=== PATIENT | female | born 1995 | race African-American/Black ===

== ENCOUNTER 2017-01-02 19:34 | Emergency (ER) | payer OTHER, MEDICAID ==
[2017-01-02] MEDS ORDERED: ACETAMINOPHEN 325 MG TABLET PO ONE (21:02)
[2017-01-02 21:14] LABS: ABSOLUTE BASOPHILS # (AUTO) 0.1 10^3/uL (0.0-0.2); ABSOLUTE MONOCYTES (AUTO) 0.7 10^3/uL (0.1-1.4); ABSOLUTE NEUT (AUTO) 7.3 10^3/uL (1.7-8.2); BASOPHILS % (AUTO) 0.5 % (0-2); EOSINOPHILS % (AUTO) 0.2 % (0-6); HEMATOCRIT 40.4 % (36.0-47.0); HEMOGLOBIN 13.7 g/dL (12.0-15.5); HGB HCT DIFFERENCE 0.7; LYMPHOCYTES % (AUTO) 20.1 % (13-45); MEAN CORPUSCULAR HEMOGLOBIN 32.1 pg (27.0-33.4); MEAN CORPUSCULAR HGB CONC 33.8 g/dL (32.0-36.0); MEAN CORPUSCULAR VOLUME 95 fl (80-97); MONOCYTES % (AUTO) 6.9 % (3-13); RED BLOOD COUNT 4.26 10^6/uL (3.72-5.28); RED CELL DISTRIBUTION WIDTH 14.1 % (11.5-14.0); SEGMENTED NEUTROPHILS % (AUTO) 72.3 % (42-78)
[2017-01-02 21:32] LABS: ANION GAP 9 (5-19); BLOOD UREA NITROGEN 11 mg/dL (7-20); CALCIUM 9.8 mg/dL (8.4-10.2); CARBON DIOXIDE 27 mmol/L (22-30); CHLORIDE 104 mmol/L (98-107); CREATININE RESULT 0.87 mg/dL (0.52-1.25); GLUCOSE 69 mg/dL (75-110); POTASSIUM 3.9 mmol/L (3.6-5.0); SODIUM 139.8 mmol/L (137-145)
[2017-01-02 21:33] LABS: APPEARANCE,URINE CLEAR; BILIRUBIN,URINE NEGATIVE (NEGATIVE); GLUCOSE, URINE NEGATIVE (NEGATIVE); KETONES,URINE NEGATIVE (NEGATIVE); LEUKOCYTE ESTERASE,URINE NEGATIVE (NEGATIVE); NITRITE,URINE NEGATIVE (NEGATIVE); PROTEIN,URINE NEGATIVE (NEGATIVE); URINE SPECIFIC GRAVITY 1.027; UROBILINOGEN,URINE NEGATIVE mg/dL (<2.0)
--- NOTE | 2017-01-02 21:55 | ER Document Report ---
ED GI/ - General Chief Complaint: Vag Bleeding, +preg <12wks Stated Complaint: VAGINAL BLEEDING/CRAMPING/ Time Seen by Provider: 01/02/17 20:55 Notes: Patient is a 8-week 21-year-old female emergency room complaining of abdominal cramping for the past 4 days with vaginal bleeding which is increased since amount over the past 2 days. She denies any pyuria, hematuria, vaginal pain, vaginal discharge. Denies any vomiting. Has occasional nausea. Denies any diarrhea or constipation. Otherwise healthy TRAVEL OUTSIDE OF THE [place] IN LAST 30 DAYS: No - Related Data Allergies/Adverse Reactions: No Known Allergies Allergy (Verified 12/10/15 15:05) Past Medical History - Social History Smoking Status: Never Smoker Family History: Reviewed & Not Pertinent Renal/ Medical History: Denies: Hx Peritoneal Dialysis GI Medical History: Reports: Hx Irritable Bowel Review of Systems - Review of Systems Constitutional: No symptoms reported Gastrointestinal: See HPI Genitourinary: See HPI Female Genitourinary: See HPI -: Yes All other systems reviewed and negative Physical Exam - Vital signs Vitals: Temp Pulse Resp BP Pulse Ox 98.2 F 94 18 119/65 100 01/02/17 19:53 01/02/17 19:53 01/02/17 19:53 01/02/17 19:53 01/02/17 19:53 - Notes Notes: PHYSICAL EXAM GENERAL: Alert, interacts well. LUNGS: Clear to auscultation bilaterally, no wheezes, rales, or rhonchi. No respiratory distress. HEART: Regular rate and rhythm. No murmurs, gallops, or rubs. ABDOMEN: Soft, nondistended, nontender. No guarding, rebound, or rigidity.. Bowel sounds present in all 4 quadrants. Female exam deferred EXTREMITIES: Moves all 4 extremities spontaneously. No edema, radial and dorsalis pedis pulses 2/4 bilaterally. No cyanosis. NEUROLOGICAL: Alert and oriented x4. Normal speech. PSYCH: Normal affect, normal mood. SKIN: Warm, dry, normal turgor. No rashes or lesions noted. Course - Re-evaluation Re-evalutation: 01/02/17 21:55 Patient is a 21-year-old female hemodynamic stable, no acute distress afebrile. HCG consistent with for about 5 weeks. Transvaginal ultrasound shows evidence of gestational sac without heart rate given that fetus is young. Findings are consistent with possible early IUP. Recommending follow-up with blood work and imaging in the next couple of days. Discussed with family who are agreeable. Patient stable for discharge home - Vital Signs Vital signs: Temp Pulse Resp BP Pulse Ox 98.0 F 67 18 120/70 100 01/02/17 22:51 01/02/17 22:51 01/02/17 22:51 01/02/17 22:51 01/02/17 22:51 - Laboratory Result Diagrams: 01/02/17 20:57 01/02/17 20:57 Laboratory results interpreted by me: 01/02/17 01/02/17 01/02/17 20:57 20:57 20:57 RDW 14.1 H Glucose 69 L Beta HCG, Quant 21124.00 H Urine Blood MODERATE H - Diagnostic Test Radiology reviewed: Reports reviewed Discharge - Discharge Clinical Impression: Vaginal bleeding before 22 weeks gestation Condition: Good Disposition: HOME, SELF-CARE Additional Instructions: : You are . care is best started as early in as possible. If you're unsure about continuing this , you should discuss this with your physician or with pediatric speech language pathologist at [facility]. You should take only medications approved by your physician. Acetaminophen can safely be taken for minor pains. As a rule, medication for chronic conditions such as asthma or seizures can safely be continued. You should discuss with the physician every medicine you take. Any regular exercise program can be continued. Talk to your physician, however, before engaging in competitive or demanding sports. Alcohol, smoking, and "street drugs" are dangerous to your baby. Cocaine is especially dangerous. Don't use any illicit drugs! BLEEDING DURING EARLY : You have been evaluated for passing blood while . While we take this symptom very seriously, most women with your degree of bleeding will go on to have a perfectly normal baby. At this time, there is no indication that a miscarriage will occur. (A miscarriage occurs when the fetus is abnormal. There is no medicine or treatment to prevent it.) A more serious cause of bleeding is tubal (or ectopic) . An ultrasound usually can show whether the is in the uterus or in the tube. Sometimes in early , no fetus is seen. In this case, careful follow-up, including repeat blood tests and repeat ultrasound, is necessary. Do not douche or have sex for at least a week, or until OK'd by the doctor. Don't use tampons. Call the doctor or return for re-examination if there is an increase in bleeding or cramping, extreme weakness, fainting, new abdominal pain, fever, or passage of tissue. RHOGAM: Rhogam is given to a woman who has Rh negative blood type when she has vaginal bleeding during her or at the time of the delivery of her baby. If a woman is Rh negative, her body will form antibodies against red blood cells from an Rh positive fetus or baby that mix with her blood during a threatened or actual miscarraige or delivery. These antibodies will remain in the woman's body forever and will attack any future Rh positive fetus preventing it from developing into a normal baby. Rhogam is given to prevent the mother's body from forming these antibodies. REPEAT BLOOD TEST: At this time, it is uncertain if you have a viable . During the first three months of , the hormone produced from the placenta will steadily rise, usually doubling in value every 2 - 3 days. In order to determine if your is viable and likely be succesful, a repeat of this blood test for the hormone is recommended in 2 - 3 days. An order for this test to be done as an outpatient is being provided. After you have this repeat test done, call your doctor or call us for the results. If the value of the test is increasing as would be expected in a normal , then your is likely to be ok. However, if the value of the test is declining, it will suggest something has happened with your and it will not likely be a successful . FOLLOW-UP CARE: If you have been referred to a physician for follow-up care, call the physician s office for an appointment as you were instructed or within the next two days. If you experience worsening or a significant change in your symptoms (very heavy bleeding with large clots of blood, passage of tissue, more severe abdominal / pelvic pain or cramping, feeling faint or severe weakness, fever, etc.), notify the physician immediately or return to the Emergency Department at any time for re-evaluation. OBSTETRIC-GYNECOLOGIC (OB-HEALTH SERVICES MANAGER) PHYSICIANS IN [place]: [facility] [address] [place] [address] [phone] For active duty and dependents diagnosed with a threatened or miscarriage, you should follow up in the following manner: Standard patients who have a local civilian provider should follow up with that provider. Patients of the Family Practice Clinic should call your Team Nurse at 8: 00 am the following morning for further instructions. If you are neither a Standard patient nor a patient of the Family Practice Clinic, you should follow up at the [facility] ([facility]) . Patients already enrolled in the [facility] OB Clinic, Prime patients not assigned to the Family Practice Clinic, and Active Duty patients not assigned to [facility] should report to the [facility] Lab at 8:00 am the next morning that the [facility] OB Clinic is open and then you will be seen in the OB Clinic at 11:00 am. Forms: Follow-Up Radiology Testing, Follow-Up Outpatient Testing Referrals: [facility] [Provider Group] - 01/05/17
--- NOTE | 2017-01-02 22:07 | RADIOLOGY REPORT (SQ) ---
EXAM DESCRIPTION: U/S OB TRANSVAG W/DOPPLER COMPLETED DATE/TIME: 01/02/2017 9:57 pm REASON FOR STUDY: vaginal bleeding COMPARISON: None. TECHNIQUE: Transvaginal static and realtime grayscale images acquired of the pelvis. Additional isaac cted spectral and color Doppler images recorded. All images stored on PACs. [id number] LIMITATIONS: None. FINDINGS: UTERUS: No masses. No anomalies. GESTATIONAL SAC: Yes. YOLK SAC: Yes. POLE: No. RIGHT ADNEXA: Normal ovary with normal vascular flow. No adnexal free fluid. No adnexal masses. LEFT ADNEXA: Normal ovary with normal vascular flow. No adnexal free fluid. No adnexal masses. FREE FLUID: None. OTHER: No other significant finding. IMPRESSION: POSSIBLE EARLY INTRAUTERINE . BHCG LEVEL APPROPRIATE FOR ENDOMETRIAL FINDINGS. CONSIDER F/U BHCG AND/OR ULTRASOUND FOR VERIFICATION AND TO EXCLUDE ECTOPIC . Trimester of : First - 0 to 13 weeks. TECHNICAL DOCUMENTATION: JOB ID: [id number]- All Rights Reserved
[2017-01-02 22:55] VITALS: BP 120/70
== END 2017-01-02 22:55 | disposition home or self-care (01) ==
LOC: ER 19:34
DX: O46.91 Antepartum hemorrhage, unspecified, first trimester (principal); Z3A.01 Less than 8 weeks gestation of pregnancy
CPT/HCPCS: 36415; 76817; 80048; 81001; 84702; 85025; 86900; 86901; 93976; 99284

== ENCOUNTER 2017-07-14 12:50 | Emergency (ER) | payer OTHER, MEDICAID ==
[2017-07-14 13:00] VITALS: BP 133/81
[2017-07-14] MEDS ORDERED: HYDROCODONE/ACETAMINOPHEN 5-325 MG TABLET PO ONE (13:16)
[2017-07-14] MEDS ORDERED: ONDANSETRON 4 MG TAB.RAPDIS PO ONE ×2 (13:16→16:35)
--- NOTE | 2017-07-14 13:16 | ER Document Report ---
ED Medical Screen (RME) - General Chief Complaint: Abdominal Pain Stated Complaint: ABDOMINAL PAIN,NAUSEA Time Seen by Provider: 07/14/17 13:11 Notes: 21-year-old female patient complaining of two-week history of left lower quadrant abdominal pain and now left upper quadrant abdominal pain. He states it feels like she is swollen in her left upper quadrant and thinks it is her spleen. She has no history of problems with her spleen. She had similar discomfort 3 years ago which she thought it might have been her irritable bowel syndrome. It resolved with no treatment at that time. LMP started 1 week ago and is just now ending. I have greeted and performed a rapid initial assessment of this patient. A comprehensive ED assessment and evaluation of the patient, analysis of test results and completion of the medical decision making process will be conducted by additional ED providers. TRAVEL OUTSIDE OF THE [place] IN LAST 30 DAYS: No - Related Data Allergies/Adverse Reactions: No Known Allergies Allergy (Verified 07/14/17 13:11) Past Medical History - Social History Chew tobacco use (# tins/day): No Frequency of alcohol use: None Drug Abuse: None Renal/ Medical History: Denies: Hx Peritoneal Dialysis GI Medical History: Reports: Hx Irritable Bowel Physical Exam - Vital signs Vitals: Temp Pulse Resp BP Pulse Ox 98.3 F 92 12 133/81 H 99 07/14/17 12:58 07/14/17 12:58 07/14/17 12:58 07/14/17 12:58 07/14/17 12:58 Course - Vital Signs Vital signs: Temp Pulse Resp BP Pulse Ox 98.3 F 92 12 133/81 H 99 07/14/17 12:58 07/14/17 12:58 07/14/17 12:58 07/14/17 12:58 07/14/17 12:58
[2017-07-14 13:32] LABS: ABSOLUTE BASOPHILS # (AUTO) 0.1 10^3/uL (0.0-0.2); ABSOLUTE MONOCYTES (AUTO) 0.6 10^3/uL (0.1-1.4); ABSOLUTE NEUT (AUTO) 6.3 10^3/uL (1.7-8.2); BASOPHILS % (AUTO) 0.6 % (0-2); EOSINOPHILS % (AUTO) 0.3 % (0-6); HEMATOCRIT 43.3 % (36.0-47.0); HEMOGLOBIN 14.7 g/dL (12.0-15.5); HGB HCT DIFFERENCE 0.8; LYMPHOCYTES % (AUTO) 21.9 % (13-45); MEAN CORPUSCULAR HEMOGLOBIN 32.4 pg (27.0-33.4); MEAN CORPUSCULAR VOLUME 95 fl (80-97); MONOCYTES % (AUTO) 6.6 % (3-13); RED BLOOD COUNT 4.54 10^6/uL (3.72-5.28); SEGMENTED NEUTROPHILS % (AUTO) 70.6 % (42-78)
[2017-07-14 13:34] LABS: APPEARANCE,URINE CLEAR; BILIRUBIN,URINE NEGATIVE (NEGATIVE); GLUCOSE, URINE NEGATIVE (NEGATIVE); KETONES,URINE NEGATIVE (NEGATIVE); LEUKOCYTE ESTERASE,URINE NEGATIVE (NEGATIVE); NITRITE,URINE NEGATIVE (NEGATIVE); PROTEIN,URINE NEGATIVE (NEGATIVE); UROBILINOGEN,URINE NEGATIVE mg/dL (<2.0)
[2017-07-14 14:06] LABS: ALANINE AMINOTRANSFERASE 25 U/L (9-52); ALBUMIN 4.9 g/dL (3.5-5.0); ALKALINE PHOSPHATASE 57 U/L (38-126); ANION GAP 11 (5-19); ASPARTATE AMINO TRANSFERASE 19 U/L (14-36); BILIRUBIN,DIRECT 0.2 mg/dL (0.0-0.4); BILIRUBIN,TOTAL 0.8 mg/dL (0.2-1.3); BLOOD UREA NITROGEN 9 mg/dL (7-20); CALCIUM 9.8 mg/dL (8.4-10.2); CARBON DIOXIDE 29 mmol/L (22-30); CHLORIDE 105 mmol/L (98-107); CREATININE RESULT 0.96 mg/dL (0.52-1.25); GLUCOSE 80 mg/dL (75-110); LIPASE 140.9 U/L (23-300); POTASSIUM 4.4 mmol/L (3.6-5.0); SODIUM 144.5 mmol/L (137-145); TOTAL PROTEIN 8.2 g/dL (6.3-8.2)
--- NOTE | 2017-07-14 18:24 | ER Document Report ---
ED General - General Chief Complaint: Abdominal Pain Stated Complaint: ABDOMINAL PAIN,NAUSEA Time Seen by Provider: 07/14/17 13:11 TRAVEL OUTSIDE OF THE [place] IN LAST 30 DAYS: No - Related Data Allergies/Adverse Reactions: No Known Allergies Allergy (Verified 07/14/17 13:11) Past Medical History - Social History Smoking Status: Current Every Day Smoker Chew tobacco use (# tins/day): No Frequency of alcohol use: None Drug Abuse: None Family History: Reviewed & Not Pertinent Patient has suicidal ideation: No Patient has homicidal ideation: No Renal/ Medical History: Denies: Hx Peritoneal Dialysis GI Medical History: Reports: Hx Irritable Bowel Physical Exam - Vital signs Vitals: Temp Pulse Resp BP Pulse Ox 98.3 F 92 12 133/81 H 99 07/14/17 12:58 07/14/17 12:58 07/14/17 12:58 07/14/17 12:58 07/14/17 12:58 Course - Re-evaluation Re-evalutation: 07/14/17 19:43 Pt. eloped before being seen - Vital Signs Vital signs: Temp Pulse Resp BP Pulse Ox 98.3 F 92 12 133/81 H 99 07/14/17 12:58 07/14/17 12:58 07/14/17 12:58 07/14/17 12:58 07/14/17 12:58 - Laboratory Result Diagrams: 07/14/17 13:20 07/14/17 13:20 Laboratory results interpreted by me: 07/14/17 13:20 Urine Ascorbic Acid 40 H
== END 2017-07-14 19:15 | disposition left against medical advice (07) ==
LOC: ER 12:50
DX: R10.9 Unspecified abdominal pain (principal); R11.0 Nausea; F17.200 Nicotine dependence, unspecified, uncomplicated; Z53.20 Procedure and treatment not carried out because of patient's decision for unspecified reasons
CPT/HCPCS: 99281; 36415; 83690; 84703; 85025; 80053; 81001; S0119

== ENCOUNTER → 2017-07-28 | Outpatient (CLI) | payer OTHER, MEDICAID ==
--- NOTE | 2017-07-28 18:03 | RADIOLOGY REPORT (SQ) ---
EXAM DESCRIPTION: KUB COMPLETED DATE/TIME: 07/28/2017 5:19 pm REASON FOR STUDY: GENERALIZED ABD. PAIN COMPARISON: None. NUMBER OF VIEWS: One view. TECHNIQUE: Supine radiographic image of the abdomen acquired. LIMITATIONS: None. FINDINGS: BOWEL GAS PATTERN: Normal bowel gas pattern. No dilated loops. CALCIFICATIONS: No suspicious calcifications. SOFT TISSUES: No gross mass or suggestion of organomegaly. HARDWARE: None in the abdomen. BONES: No acute fracture. No worrisome bone lesions. OTHER: No other significant finding. IMPRESSION: NO RADIOGRAPHIC EVIDENCE FOR ACUTE ABDOMINAL DISEASE. TECHNICAL DOCUMENTATION: JOB ID: [id number] [place]-72 2010 [employer]- All Rights Reserved
[2017-07-28 18:13] LABS: ABSOLUTE LYMPHOCYTES (AUTO) 1.9 10^3/uL (0.5-4.7); ABSOLUTE MONOCYTES (AUTO) 0.7 10^3/uL (0.1-1.4); ABSOLUTE NEUT (AUTO) 7.7 10^3/uL (1.7-8.2); BASOPHILS % (AUTO) 0.3 % (0-2); EOSINOPHILS % (AUTO) 0.1 % (0-6); HEMATOCRIT 40.2 % (36.0-47.0); HEMOGLOBIN 13.7 g/dL (12.0-15.5); HGB HCT DIFFERENCE 0.9; LYMPHOCYTES % (AUTO) 18.4 % (13-45); MEAN CORPUSCULAR HEMOGLOBIN 32.5 pg (27.0-33.4); MEAN CORPUSCULAR HGB CONC 34.1 g/dL (32.0-36.0); MEAN CORPUSCULAR VOLUME 95 fl (80-97); MONOCYTES % (AUTO) 6.3 % (3-13); RED BLOOD COUNT 4.22 10^6/uL (3.72-5.28); RED CELL DISTRIBUTION WIDTH 14.1 % (11.5-14.0); SEGMENTED NEUTROPHILS % (AUTO) 74.9 % (42-78); WHITE BLOOD COUNT 10.3 10^3/uL (4.0-10.5)
[2017-07-28 18:39] LABS: ALANINE AMINOTRANSFERASE 22 U/L (9-52); ALBUMIN 4.8 g/dL (3.5-5.0); ALKALINE PHOSPHATASE 58 U/L (38-126); AMYLASE 90 U/L (30-110); ANION GAP 10 (5-19); ASPARTATE AMINO TRANSFERASE 21 U/L (14-36); BILIRUBIN,DIRECT 0.3 mg/dL (0.0-0.4); BILIRUBIN,TOTAL 0.7 mg/dL (0.2-1.3); BLOOD UREA NITROGEN 10 mg/dL (7-20); CALCIUM 10.3 mg/dL (8.4-10.2); CARBON DIOXIDE 28 mmol/L (22-30); CHLORIDE 103 mmol/L (98-107); CREATININE RESULT 0.84 mg/dL (0.52-1.25); GLUCOSE 83 mg/dL (75-110); IRON 98.2 ug/dL (37-170); POTASSIUM 4.2 mmol/L (3.6-5.0); SODIUM 141.4 mmol/L (137-145)
[2017-07-28 18:42] LABS: C-REACTIVE PROTEIN < 5.0 mg/L (<10.0)
[2017-07-28 18:50] LABS: ERYTHROCYTE SEDIMENTATION RATE 8 mm/hr (0-20)
== END ==
LOC: OD 16:55
PROVIDERS: ATTEND Physician Assistant
DX: N92.1 Excessive and frequent menstruation with irregular cycle (principal); R10.12 Left upper quadrant pain; R10.84 Generalized abdominal pain; R19.4 Change in bowel habit
CPT/HCPCS: 36415; 74000; 80053; 82150; 83540; 83690; 84443; 85025; 85652; 86140

== ENCOUNTER 2017-08-10 09:02 | Day surgery (SDC) | payer MEDICAID, OTHER ==
[~2017-08-10 09:02] MED LIST: PROPOFOL INJ 200 MG/20 ML VIAL IV ONE
[2017-08-10] MEDS ORDERED: PROPOFOL INJ 200 MG/20 ML VIAL IV ONE ×2 (09:12→09:43)
[2017-08-10] MEDS ORDERED: SIMETHICONE 80 MG TAB.CHEW ONE (10:07)
[2017-08-10] MEDS ORDERED: SIMETHICONE 80 MG TAB.CHEW PO ONE (10:15)
--- NOTE | 2017-08-10 10:50 | Operative Report ---
Operative Report DATE OF SURGERY: 08/10/17 Operative Report: The risks, benefits and alternatives of the procedure including risks of bleeding, perforation requiring surgery are explained to the patient in detail and informed consent was obtained. The patient is brought back to the endoscopy suite and placed in the left, lateral decubital position. Timeout was called. Propofol medications administered. A rectal examination is done which did not reveal any masses, tears or fissures. Prep is not good. But enough visualization was seen we were able to remove the scope around to the cecum. The cecum was identified by the usual anatomical landmarks including the ileocecal valve. The prep in the cecum is not as good to identify the appendiceal office. Patient does have a somewhat redundant colon. The scope was then sequentially pulled back via the various segments of the colon including the ascending colon, hepatic flexure, transverse colon, splenic flexure, descending colon finding to the rectosigmoid portions of the colon. Retroflexion maneuvers performed. The risks benefits and alternatives of the procedure explained to the patient in detail and informed consent is obtained,A GIF Olympus video scope was inserted into the patient's mouth and hypopharynx ,the esophagus is identified intubated and insufflated, the scope was then advanced through the esophagus stomach and duodenum, retroflexion maneuver is done ,the esophagus stomach and first and second portions of the duodenum examined PREOPERATIVE DIAGNOSIS: Chronic abdominal pain that occurs with the patient's menses. She is currently on her menstrual period. Rule out Crohn's disease. Change in bowel habits. POSTOPERATIVE DIAGNOSIS: Poor prep in the colon. Redundant colon. Normal colonoscopy. Random right-sided colon biopsies obtained. Mild gastritis and duodenitis rule out H. pylori, rule out celiac disease. Unclear if she has had a PHARMACIST ASSISTANT workup in the past. OPERATION: Colonoscopy with biopsy. EGD with biopsy SURGEON: FEI COOPER ANESTHESIA: LMAC TISSUE REMOVED OR ALTERED: As described above. COMPLICATIONS: None. ESTIMATED BLOOD LOSS: None. INTRAOPERATIVE FINDINGS: As described above. PROCEDURE: Patient woke up from sedation complaining of her typical pain. Despite being given 600 mg of propofol claims that she was awake during the procedure. I had asked anesthesia to see her in follow-up as well. Her abdomen is soft nontender, nondistended she is passing bowel sounds, there is no blood. She does not want to leave the hospital until further tests are done. I called down to the emergency room to request assistance with this case. ED physician Dr. Irby in we will see her in the ED. Apparently she is also been seen by Dr. Ashley of [facility] in the past. patient states that she has been having the same pain since age 16, and that " no one is taking her seriously" She has met discharge criteria here in the endoscopy. We will send her down to the emergency room for any further workup if needed. Patient wants multiple tests done she says her blood work has always been normal. She has a history of panic disorder as well.
[2017-08-10 11:03] VITALS: BP 114/74
== END 2017-08-10 10:50 | disposition home or self-care (01) ==
LOC: END 09:02
PROVIDERS: ATTEND Internal Medicine Gastroenterology
PROC: 0DBF8ZX Excision of Right Large Intestine, Via Natural or Artificial Opening Endoscopic, Diagnostic (ICD-10-PCS; 2017-08-10)
PROC: 0DB68ZX Excision of Stomach, Via Natural or Artificial Opening Endoscopic, Diagnostic (ICD-10-PCS; principal; 2017-08-10 11:00)
PROC: 0DB98ZX Excision of Duodenum, Via Natural or Artificial Opening Endoscopic, Diagnostic (ICD-10-PCS; 2017-08-10 11:00)
DX: K29.50 Unspecified chronic gastritis without bleeding (principal); K29.80 Duodenitis without bleeding; K52.9 Noninfective gastroenteritis and colitis, unspecified; K64.8 Other hemorrhoids; Z80.0 Family history of malignant neoplasm of digestive organs; N94.6 Dysmenorrhea, unspecified; G89.29 Other chronic pain; Z79.899 Other long term (current) drug therapy
CPT/HCPCS: 43239; 45380; 88305 ×2; J2704; 813

== ENCOUNTER 2017-08-10 10:56 | Emergency (ER) | payer MEDICAID ==
[2017-08-10] MEDS ORDERED: NORMAL SALINE 1000 ML 1,000 ML IV ONE ×2 (11:28→15:26)
--- NOTE | 2017-08-10 11:29 | ER Document Report ---
ED General - General Chief Complaint: Abdominal Pain Stated Complaint: PSYCH EVAL Time Seen by Provider: 08/10/17 11:13 TRAVEL OUTSIDE OF THE [place] IN LAST 30 DAYS: No - HPI Notes: Patient is a 21-year-old female who presents to the ED complaining of continued left upper quadrant pain, constant nausea ongoing over the last 3-4 years. Patient states that she has never had a CT scan of her abdomen and is requesting one today. Patient states that she was just brought down here after having a colonoscopy and endoscopy performed upstairs for further evaluation of her abdomen. Dr. Krishnan called and stated that he does not believe it has anything to do with the endoscopy or colonoscopy being performed. Patient states that food does not improve or worsen her symptoms. Patient states that she has been told over and over again that it is her IBS, but she is not convinced. Patient also has issues with anxiety and was having an anxiety attack after her procedure which has since calmed down. Patient states that most of her pain is in the left upper quadrant area and it radiates around the left side of the abdomen. She still urinating normally. Patient states that she has loose stool about 6 times per day which is her normal. She has not noticed any melena or hematochezia. Patient's mother did develop colon cancer and from it when she was in her mid 20s, so patient has been anxious since her diagnosis initially of having IBS and issues with her colon. Denies any headache, fever, neck pain, URI, sore throat, chest pain, palpitations, syncope , cough, shortness of breath, wheeze, dyspnea, vomiting, urinary retention, dysuria, hematuria, loss of control of bowel or bladder, numbness/tingling, saddle anesthesia, muscle paralysis/weakness, or rash. - Related Data Allergies/Adverse Reactions: No Known Allergies Allergy (Verified 08/10/17 09:02) Past Medical History - Social History Smoking Status: Never Smoker Family History: Reviewed & Not Pertinent - Past Medical History Cardiac Medical History: Denies: Hx Coronary Artery Disease, Hx Heart Attack, Hx Hypertension Pulmonary Medical History: Denies: Hx Asthma, Hx Bronchitis, Hx COPD, Hx Pneumonia Neurological Medical History: Denies: Hx Cerebrovascular Accident, Hx Seizures Renal/ Medical History: Denies: Hx Peritoneal Dialysis GI Medical History: Reports: Hx Irritable Bowel Musculoskeltal Medical History: Denies Hx Arthritis - Immunizations Hx Diphtheria, Pertussis, Tetanus Vaccination: No Review of Systems - Review of Systems Notes: REVIEW OF SYSTEMS: CONSTITUTIONAL : Denies fever, chills, or sweats. Denies recent illness. EENT: Denies eye, ear, throat, or mouth pain or symptoms. Denies nasal or sinus congestion or discharge. Denies throat, tongue, or mouth swelling or difficulty swallowing. CARDIOVASCULAR: Denies chest pain. Denies palpitations or racing or irregular heart beat. Denies ankle edema. RESPIRATORY: Denies cough, cold, or chest congestion. Denies shortness of breath, difficulty breathing, or wheezing. GASTROINTESTINAL: see hpi GENITOURINARY: Denies difficulty urinating, painful urination, burning, frequency, blood in urine, or discharge. FEMALE GENITOURINARY: Denies vaginal bleeding, heavy or abnormal periods, irregular periods. Denies vaginal discharge or odor. MUSCULOSKELETAL: Denies back or neck pain or stiffness. Denies joint pain or swelling. SKIN: Denies rash, lesions or sores. NEUROLOGICAL: Denies confusion or altered mental status. Denies passing out or loss of consciousness. Denies dizziness or lightheadedness. Denies headache. Denies weakness or paralysis or loss of use of either side. Denies problems with gait or speech. Denies sensory loss, numbness, or tingling. Denies seizures. Psych: see hpi. No SI/HI. ALL OTHER SYSTEMS REVIEWED AND NEGATIVE. Dictation was performed using [employer] voice recognition software Physical Exam - Vital signs Vitals: Temp Pulse Resp BP Pulse Ox 97.8 F 79 18 124/76 100 08/10/17 11:11 08/10/17 11:11 08/10/17 11:11 08/10/17 11:11 08/10/17 11:11 Notes: PHYSICAL EXAMINATION: GENERAL: Well-appearing, well-nourished and in no acute distress. A&Ox4 HEAD: Atraumatic, normocephalic. EYES: Pupils equal round and reactive to light, extraocular movements intact, sclera anicteric, conjunctiva are normal. ENT: Nares patent and without discharge. oropharynx clear without exudates. No tonsilar hypertrophy or erythema. Moist mucous membranes. NECK: Normal range of motion, supple without lymphadenopathy LUNGS: Breath sounds clear to auscultation bilaterally and equal. No wheezes rales or rhonchi. HEART: Regular rate and rhythm without murmurs, rubs, gallops. ABDOMEN: Soft, nondistended abdomen. No guarding, no rebound. No masses appreciated. Normal bowel sounds present. No CVA tenderness bilaterally. + mild tenderness to the LUQ. Musculoskeletal: FROM to passive/active. Strength 5+/5. Extremities: No cyanosis, clubbing, or edema b/l. Peripheral pulses 2+. Capillary refill less than 3 seconds. NEUROLOGICAL: Cranial nerves grossly intact. Normal speech, normal gait. Normal sensory, motor exams PSYCH: Normal mood, normal affect. SKIN: Warm, Dry, normal turgor, no rashes or lesions noted. Course - Re-evaluation Re-evalutation: 08/10/17 14:[address] Real recommends starting her on Buspar 5mg BID as well as Prozac 20mg daily. Pt was given information to establish with a Psych facility. CBC, CMP, Lipase, UA unremarkable for acute pathology. Urine drug screen + for marijuana. CXR unremarkable for acute pathology Zofran given IV We will obtain a CT scan of abd/pelv w/IV & oral. 08/10/17 16:51 Patient is an afebrile, well-hydrated, 21-year-old female who presents the ED with left upper quadrant pain, not otherwise specified. Vitals are stable. PE is otherwise unremarkable. Dr. Krishnan does not believe that this has anything to do the endoscopy or colonoscopy. Blood work was unremarkable as well as a CT scan of the abdomen and pelvis with IV and oral contrast. Haldol 5 mg given p.o. today. I question if her symptoms have anything to do with an allergy component versus psychogenic as patient appears to be comfortable when her friend/significant other is not in the room, but does not act that way when that person is in the room. A psych consult was performed as well and we will start her on the medications recommended. Advised patient to keep her follow- up this week with her PCM for further evaluation and testing if needed. Low suspicion/risk for acute appendicitis, bowel obstruction, acute cholecystitis, acute cholangitis, perforated diverticulitis, incarcerated hernia, pancreatitis , perforated ulcer, peritonitis, sepsis, pelvic inflammatory disease, ectopic , tubo-ovarian abscess, ovarian torsion, or other systemic emergent condition at this time. Patient is aware that her condition can change from initial presentation and she needs to monitor symptoms closely and seek medical attention if any acute changes. Conservative measures otherwise for symptoms. Recheck with your PCM in 3-5 days. Consider consult with a outside parts sales. Return to the ED with any worsening/concerning symptoms otherwise as reviewed in discharge. Patient is in agreement. - Vital Signs Vital signs: Temp Pulse Resp BP Pulse Ox 98.6 F 75 16 108/63 100 08/10/17 15:11 08/10/17 15:11 08/10/17 15:11 08/10/17 15:11 08/10/17 15:11 - Laboratory Result Diagrams: 08/10/17 12:01 08/10/17 12:01 Laboratory results interpreted by me: 08/10/17 12:01 Lipase 388.1 H Discharge - Discharge Clinical Impression: Anxiety Unspecified abdominal pain Qualifiers: Abdominal location: left upper quadrant Qualified Code(s): R10.12 - Left upper quadrant pain Condition: Stable Disposition: HOME, SELF-CARE Instructions: Abdominal Pain ([facility]), Antinausea Medication ([facility]), Anxiety ([facility]) Additional Instructions: Maintain adequate fluid and food intake Armstrong diet ([employer] Bananas, rice, apples, toast, etc Zofran as needed tylenol if needed Consider further allergy testing and stool testing Monitor for any worsening symptoms Make sure you are staying hydrated enough to urinate and have normal BM's Recheck with your PCM in 3-5 days Consider consult with Gastroenterology for ongoing/worsening symptoms Return to the ED with any worsening symptoms and/or development of fever, headache, chest pain, palpitations, syncope, shortness of breath, trouble breathing, abdominal pain, n/v/d, blood in stool/urine, weakness, or other worsening symptoms that are concerning to you. Prescriptions: Buspirone HCl [Buspar 5 mg Tablet] 1 tab PO BID #30 tab Fluoxetine HCl [Prozac] 20 mg PO DAILY #15 capsule Ondansetron [Zofran Odt 4 mg Tablet] 1 - 2 tab PO Q4H PRN #15 tab.rapdis PRN Reason: For Nausea/Vomiting Referrals: NIMO ALAMO PA-C [Primary Care Provider] - Follow up in 3-5 days FEI KRISHNAN MD [ACTIVE STAFF] - Follow up as needed VALENTINO WU MD [ACTIVE STAFF] - Follow up as needed
--- NOTE | 2017-08-10 12:06 | RADIOLOGY REPORT (SQ) ---
EXAM DESCRIPTION: CHEST PA/LAT COMPLETED DATE/TIME: 08/10/2017 11:54 am REASON FOR STUDY: epigastric/LUQ pain COMPARISON: CT angio chest 06/07/2016 EXAM PARAMETERS: NUMBER OF VIEWS: two views TECHNIQUE: Digital Frontal and Lateral radiographic views of the chest acquired. RADIATION DOSE: NA LIMITATIONS: none FINDINGS: LUNGS AND PLEURA: No opacities, masses or pneumothorax. No pleural effusion. MEDIASTINUM AND HILAR STRUCTURES: No masses or contour abnormalities. HEART AND VASCULAR STRUCTURES: Heart normal size. No evidence for failure. BONES: No acute findings. HARDWARE: None in the chest. OTHER: No other significant finding. IMPRESSION: NO SIGNIFICANT RADIOGRAPHIC FINDING IN THE CHEST. TECHNICAL DOCUMENTATION: JOB ID: [id number] [employer]- All Rights Reserved
[2017-08-10 12:17] LABS: ABSOLUTE LYMPHOCYTES (AUTO) 1.5 10^3/uL (0.5-4.7); ABSOLUTE MONOCYTES (AUTO) 0.6 10^3/uL (0.1-1.4); ABSOLUTE NEUT (AUTO) 6.2 10^3/uL (1.7-8.2); BASOPHILS % (AUTO) 0.5 % (0-2); EOSINOPHILS % (AUTO) 0.2 % (0-6); HEMATOCRIT 39.3 % (36.0-47.0); HEMOGLOBIN 13.7 g/dL (12.0-15.5); LYMPHOCYTES % (AUTO) 18.3 % (13-45); MEAN CORPUSCULAR HEMOGLOBIN 33.2 pg (27.0-33.4); MEAN CORPUSCULAR HGB CONC 34.9 g/dL (32.0-36.0); MEAN CORPUSCULAR VOLUME 95 fl (80-97); MONOCYTES % (AUTO) 6.9 % (3-13); PLATELET COUNT 182 10^3/uL (150-450); RED BLOOD COUNT 4.13 10^6/uL (3.72-5.28); RED CELL DISTRIBUTION WIDTH 13.7 % (11.5-14.0); SEGMENTED NEUTROPHILS % (AUTO) 74.1 % (42-78); TOTAL CELLS COUNTED % (AUTO) 100 %; WHITE BLOOD COUNT 8.3 10^3/uL (4.0-10.5)
[2017-08-10 12:21] LABS: APPEARANCE,URINE CLEAR; BILIRUBIN,URINE NEGATIVE (NEGATIVE); COLOR,URINE COLORLESS; GLUCOSE, URINE NEGATIVE (NEGATIVE); KETONES,URINE NEGATIVE (NEGATIVE); LEUKOCYTE ESTERASE,URINE NEGATIVE (NEGATIVE); NITRITE,URINE NEGATIVE (NEGATIVE); PROTEIN,URINE NEGATIVE (NEGATIVE); URINE SPECIFIC GRAVITY 1.001; UROBILINOGEN,URINE NEGATIVE mg/dL (<2.0)
[2017-08-10 12:36] LABS: ALANINE AMINOTRANSFERASE 22 U/L (9-52); ALBUMIN 4.6 g/dL (3.5-5.0); ALKALINE PHOSPHATASE 63 U/L (38-126); ANION GAP 9 (5-19); ASPARTATE AMINO TRANSFERASE 20 U/L (14-36); BILIRUBIN,DIRECT 0.2 mg/dL (0.0-0.4); BILIRUBIN,TOTAL 1.2 mg/dL (0.2-1.3); BLOOD UREA NITROGEN 10 mg/dL (7-20); CALCIUM 9.9 mg/dL (8.4-10.2); CARBON DIOXIDE 29 mmol/L (22-30); CHLORIDE 105 mmol/L (98-107); GLUCOSE 89 mg/dL (75-110); LIPASE 388.1 U/L (23-300); POTASSIUM 3.9 mmol/L (3.6-5.0); SODIUM 143.1 mmol/L (137-145); TOTAL PROTEIN 7.6 g/dL (6.3-8.2)
[2017-08-10 12:41] LABS: URINE AMPHETAMINES SCREEN NEGATIVE; URINE BARBITURATES SCREEN NEGATIVE; URINE BENZODIAZEPINES SCREEN NEGATIVE; URINE COCAINE SCREEN NEGATIVE; URINE MARIJUANA (THC) SCREEN UNCONFIRMED POSITIVE; URINE METHADONE SCREEN NEGATIVE; URINE PHENCYCLIDINE SCREEN NEGATIVE
[2017-08-10] MEDS ORDERED: ONDANSETRON HCL INJ/PF 4 MG/2 ML SDV IV ONE (13:03)
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
--- NOTE | 2017-08-10 16:46 | RADIOLOGY REPORT (SQ) ---
EXAM DESCRIPTION: CT ABD/PELVIS WITH IV ORAL COMPLETED DATE/TIME: 08/10/2017 4:31 pm REASON FOR STUDY: Left abdominal pain COMPARISON: None. TECHNIQUE: CT scan of the abdomen and pelvis performed using helical scanning technique with dynamic intravenous contrast injection and oral contrast. Images reviewed with lung, soft tissue, and bone w indows. Reconstructed coronal and sagittal MPR images reviewed. Delayed images for evaluation of the urinary system also acquired. All images stored on PACS. All CT scanners at this facility use dose modulation, iterative reconstruction, and/or weight based d osing when appropriate to reduce radiation dose to as low as reasonably achievable (ALARA). [facility]: Dose Right [facility]: CareDose [facility]: Dose Right [facility]: Teradose 4D [facility]: [employer] CONTRAST TYPE AND DOSE: contrast/concentration: Isovue 370.00 mg/ml; Total Contrast Delivered: 75.0 ml; Total Saline Delivered: 62.0 ml RENAL FUNCTION: None required. The patient is less than 50 years old. RADIATION DOSE: CT Rad equipment meets quality standard of care and radiation dose reduction techniq ues were employed. CTDIvol: NaN - NaN mGy. DLP: 0 mGy-cm.. LIMITATIONS: There is a relative paucity of mesenteric and retroperitoneal fat making delineation of abdominal and pelvic structures somewhat difficult. FINDINGS: LOWER CHEST: No significant findings. No nodules or infiltrates. LIVER: Normal size. No masses. No dilated ducts. SPLEEN: Normal size. No focal lesions. PANCREAS: No masses. No significant calcifications. No adjacent inflammation or peripancreatic fluid collections. Pancreatic duct not dilated. GALLBLADDER: No identified stones by CT criteria. No inflammatory changes to suggest cholecystitis. ADRENAL GLANDS: No significant masses or asymmetry. RIGHT KIDNEY AND URETER: No solid masses. No significant calcifications. No hydronephrosis or hyd roureter. LEFT KIDNEY AND URETER: No solid masses. No significant calcifications. No hydronephrosis or hydr oureter. AORTA AND VESSELS: No aneurysm. No dissection. Renal arteries, SMA, celiac without stenosis. RETROPERITONEUM: No retroperitoneal adenopathy, hemorrhage or masses. BOWEL AND PERITONEAL CAVITY: No masses or inflammatory changes. No free fluid or peritoneal masses. APPENDIX: Not identified. PELVIS: No mass. No free fluid. Normal bladder. ABDOMINAL WALL: No masses. No hernias. BONES: No significant or acute findings. OTHER: No other significant finding. IMPRESSION: NO SIGNIFICANT OR ACUTE FINDING IN THE ABDOMEN OR PELVIS ON CT SCAN WITH IV CONTRAST. TECHNICAL DOCUMENTATION: JOB ID: [id number] Quality ID # [id number]: Final reports with documentation of one or more dose reduction techniques (e.g., Au tomated exposure control, adjustment of the mA and/or kV according to patient size, use of iterative reconstruction technique) 2010 [employer]- All Rights Reserved
[2017-08-10] MEDS ORDERED: HALOPERIDOL 5 MG TABLET PO ONE (16:48)
[2017-08-10 17:15] VITALS: BP 116/66
== END 2017-08-10 17:15 | disposition home or self-care (01) ==
LOC: ER 10:56
DX: K58.9 Irritable bowel syndrome, unspecified (principal); F41.9 Anxiety disorder, unspecified; R10.12 Left upper quadrant pain; R11.0 Nausea; Z98.890 Other specified postprocedural states; Z80.0 Family history of malignant neoplasm of digestive organs
CPT/HCPCS: 99285; 96361; 96374; 36415; 87086; 84702; 83690; 85025; 80053; 81001; 80307; 71046; 74177; J3490; J2405; J7030

== ENCOUNTER → 2018-05-27 | Outpatient (CLI) | payer BC ==
--- NOTE | 2018-05-27 11:59 | RADIOLOGY REPORT (SQ) ---
EXAM DESCRIPTION: U/S OB TRANSVAGINAL W/O DOP COMPLETED DATE/TIME: 05/27/2018 10:34 am REASON FOR STUDY: LOWER ABD PAIN (R10.30) R10.30 LOWER ABDOMINAL PAIN, UNSPECIFIED COMPARISON: None. TECHNIQUE: Endovaginal static and realtime grayscale images acquired of the pelvis. Additional selec nuvia spectral and color Doppler images recorded. All images stored on PACs. bHCG: Not available CLINICAL DATES: Unknown LIMITATIONS: None. FINDINGS: FETUS: Single Living intrauterine . ULTRASOUND EGA: 7 weeks 4 days ULTRASOUND ARIE: 01/08/2019 EFW: Not applicable less than 20 weeks. CRL: 1.4 cm FHR: 168 beats per minute. SURVEY: Too early to assess. AMNIOTIC FLUID: Adequate amount. PLACENTA: Not yet developed due to early gestation. SUBCHORIONIC BLEED: No SIZE OF BLEED: Not applicable. UTERUS: No masses. No anomalies. Uterus is 10.4 x 6.2 x 8 cm in size CERVICAL LENGTH: Closed, 3 cm in length RIGHT ADNEXA: Normal ovary with normal vascular flow. Right ovary is 2.5 x 2.5 x 1.8 cm No adnexal free fluid. No adnexal masses. LEFT ADNEXA: Normal ovary with normal vascular flow. Left ovary 3.4 x 2.9 x 2.3 cm in size with a 3. 4 x 3 cm hemorrhagic corpus luteal cyst. No adnexal free fluid. No adnexal masses. FREE FLUID: None. OTHER: No other significant finding. IMPRESSION: LIVING INTRAUTERINE . EGA 7 weeks 4 days Trimester of : First - 0 to 13 weeks. TECHNICAL DOCUMENTATION: JOB ID: [id number]- All Rights Reserved rev Reading location - IP/workstation name: [email or web address]
== END ==
LOC: RAD 09:36
PROVIDERS: ATTEND Physician Assistant
DX: R10.30 Lower abdominal pain, unspecified (principal)
CPT/HCPCS: 76817

== ENCOUNTER 2019-01-01 23:16 | Outpatient (CLI) | payer BC, MEDICAID ==
[2019-01-02 00:03] LABS: URINE AMPHETAMINES SCREEN NEGATIVE; URINE BARBITURATES SCREEN NEGATIVE; URINE BENZODIAZEPINES SCREEN NEGATIVE; URINE COCAINE SCREEN NEGATIVE; URINE METHADONE SCREEN NEGATIVE; URINE PHENCYCLIDINE SCREEN NEGATIVE
[2019-01-02 00:06] LABS: URINE MARIJUANA (THC) SCREEN UNCONFIRMED POSITIVE
[2019-01-02 00:36] LABS: AMORPHOUS SEDIMENT,URINE TRACE /HPF; APPEARANCE,URINE SLIGHTLY-CLOUDY; BILIRUBIN,URINE NEGATIVE (NEGATIVE); COLOR,URINE STRAW; GLUCOSE, URINE NEGATIVE (NEGATIVE); KETONES,URINE NEGATIVE (NEGATIVE); LEUKOCYTE ESTERASE,URINE SMALL (NEGATIVE); NITRITE,URINE NEGATIVE (NEGATIVE); PROTEIN,URINE NEGATIVE (NEGATIVE); URINE SPECIFIC GRAVITY 1.005; UROBILINOGEN,URINE NEGATIVE mg/dL (<2.0)
--- NOTE | 2019-01-02 01:14 | Non Stress Test Report ---
Non Stress Test Datetime Report Generated by CPN: 01/02/2019 01:13 DEMOGRAPHIC EGA NST: 38.5 INDICATION Indication for Study: Ordered by Provider URINE RESULTS Urine Protein, NST: Negative Urine Ketones - NST: Negative Urine Glucose - NST: Negative Urine Blood - NST: Negative MONITORING Monitor Explained: Monitor Explained; Test Explained; Patient Verbalized Understanding Time on Monitor: 01/01/2019 23:26 Time off Monitor: 01/02/2019 00:42 NST Duration: 76 NST INTERVENTIONS NST Interventions: PO Hydration Physician Notified NST: Trinh BABY A: [id number] BABY A Movement : Present Contraction Frequency : irregular FHR Baseline : 135 Accelerations : 15X15 Decelerations : None Variability : Moderate 6-25bpm NST Review: Meets Criteria for Reactive NST NST Review and Verified By : Romy Saunders RN NST Results: Reactive NST REPORT Report Trigger: Send Report
[2019-01-02 01:57] LABS: CHLAM PCR DETECTED (NOT DETECT); GON PCR NOT DETECTED (NOT DETECT)
== END 2019-01-02 00:56 | disposition home or self-care (01) ==
LOC: LC 23:16
PROVIDERS: ATTEND Obstetrics & Gynecology
PROC: 4A1HXCZ Monitoring of Products of Conception, Cardiac Rate, External Approach (ICD-10-PCS; principal; 2019-01-01)
DX: O47.1 False labor at or after 37 completed weeks of gestation (principal); Z3A.38 38 weeks gestation of pregnancy
CPT/HCPCS: 59025; 81001; 80307; 87491; 87591; G0480 ×2; 80349

== ENCOUNTER 2019-01-03 06:32 | Inpatient (IN) | payer BC, MEDICAID ==
[2019-01-03 06:59] LABS: APPEARANCE,URINE SLIGHTLY-CLOUDY; BILIRUBIN,URINE NEGATIVE (NEGATIVE); COLOR,URINE YELLOW; GLUCOSE, URINE NEGATIVE (NEGATIVE); KETONES,URINE NEGATIVE (NEGATIVE); LEUKOCYTE ESTERASE,URINE LARGE (NEGATIVE); NITRITE,URINE NEGATIVE (NEGATIVE); PROTEIN,URINE NEGATIVE (NEGATIVE); URINE SPECIFIC GRAVITY 1.011; UROBILINOGEN,URINE NEGATIVE mg/dL (<2.0)
[2019-01-03 07:12] LABS: URINE AMPHETAMINES SCREEN NEGATIVE; URINE BARBITURATES SCREEN NEGATIVE; URINE BENZODIAZEPINES SCREEN NEGATIVE; URINE COCAINE SCREEN NEGATIVE; URINE METHADONE SCREEN NEGATIVE; URINE PHENCYCLIDINE SCREEN NEGATIVE
--- NOTE | 2019-01-03 07:23 | Admission Physical ---
Datetime Report Generated by CPN: 01/03/2019 07:23 CURRENT ADMISSION Chief Complaint: Uterine Contractions Indication for Induction: Not Applicable Admit Impression : Term, Intrauterine ; Active Labor Admit Plan: Admit to Unit; Initiate Labor Protocol ALLERGIES Medication Allergies: No Medication Allergies: No Known Allergies (01/03/2019) Latex: No Latex Allergies OBSTETRICAL HISTORY EDC: 01/10/2019 00:00 : 2 Para: 0 Gestational Diabetes: No Rh Sensitization: No Incompetent Cervix: No JAMAL: No Infertility: No ART Treatment: No Uterine Anomaly: No IUGR: No Hx Previous C/S: No Macrosomia: No Hx Loss/Stillborn: No PIH: No Hx : No Placenta Previa/Abruption: No Depression/PP Depression: No PTL/PROM: No Post Hemorrhage: No SEE RECORDS Alcohol: No Marijuana : No Cocaine: No Other Illicit Drugs: No MEDICAL HISTORY Diabetes: No Blood Transfusion: No Pulmonary Disease (Asthma, TB): No Breast Disease: No Hypertension: No Wireless Operator Surgery: No Heart Disease: No Hosp/Surgery: No Autoimmune Disorder: No Anesthetic Complications: No Kidney Disease: No Abnormal Pap Smear: No Neuro/Epilepsy: No Psychiatric Disorders: No Other Medical Diseases: No Hepatitis/Liver Disease: No Significant Family History: No Varicosities/Phlebitis: No Trauma/Violence : No Thyroid Dysfunction: No Medical History Comments: IBS INFECTIOUS HISTORY Gonorrhea: No Genital Herpes: No Chlamydia: Yes Tuberculosis: No Syphilis: No Hepatitis: No HIV/AIDS Exposure: No Rash or Viral Illness: No HPV: No Infectious History Comments: positive and treat 12/23 PHYSICAL EXAM General: Normal HEENT: Normal Neurologic: Normal Thyroid: Normal Heart: Normal Lungs: Normal Breast: Normal Back: Normal Abdomen: Normal Genitourinary Exam: Normal Extremities: Normal DTRs: Normal Pelvic Type: Adequate Vital Signs: Reviewed; Within Normal Limits VAGINAL EXAM Dilatation: 5 Effacement: 100 Station: 0 Contraction Comments: irregular MEMBRANES Membranes: Intact FETUS A EGA: 39.0 Monitoring: External US FHR- Baseline: 140s Variability: Moderate 6-25bpm Accelerations: 10X10 Decelerations: None FHR Category: Category I Admit Comment: present to L_D c/o contractions. Pt here last week and treated for Chlamydia. Cerviz 5 cm. Per nursing, she cannot feel membranes, but does not see a wet perineum. Pt states that she has been in the bath tub for several hrs. GBS Neg. PLANS FOR LABOR AND DELIVERY Labor and Delivery: None Pain Management: Epidural Feeding Preference: Breast Benefit of Breast Feed Discussed: Yes Circumcision: Yes INFORMED CONSENT Signature: with User ID: [email or web address]
[2019-01-03 07:27] LABS: URINE MARIJUANA (THC) SCREEN UNCONFIRMED POSITIVE
[2019-01-03] MEDS ORDERED: MISOPROSTOL 0.2 MG TABLET ONE (07:42)
[2019-01-03] MEDS ORDERED: OXYTOCIN 10 UNIT/ML VIAL ONE (07:42)
[2019-01-03] MEDS ORDERED: OXYTOCIN/NORMAL SALINE 20 UNIT/1,000 ML RTUINJ ONE (07:43)
[2019-01-03] MEDS ORDERED: LIDOCAINE 1% INJ-PF (10 MG/ML) 30 ML SDV ONE (07:43)
[2019-01-03] MEDS ORDERED: AZITHROMYCIN INJ 500 MG VIAL IV ONE ×2 (08:17→08:32)
[2019-01-03 08:27] LABS: ABSOLUTE BASOPHILS # (AUTO) 0.1 10^3/uL (0.0-0.2); ABSOLUTE LYMPHOCYTES (AUTO) 1.1 10^3/uL (0.5-4.7); ABSOLUTE MONOCYTES (AUTO) 0.7 10^3/uL (0.1-1.4); ABSOLUTE NEUT (AUTO) 14.4 10^3/uL (1.7-8.2); BASOPHILS % (AUTO) 0.3 % (0-2); HEMATOCRIT 36.9 % (36.0-47.0); HEMOGLOBIN 12.6 g/dL (12.0-15.5); LYMPHOCYTES % (AUTO) 6.9 % (13-45); MEAN CORPUSCULAR HEMOGLOBIN 32.9 pg (27.0-33.4); MEAN CORPUSCULAR HGB CONC 34.2 g/dL (32.0-36.0); MEAN CORPUSCULAR VOLUME 96 fl (80-97); MONOCYTES % (AUTO) 4.6 % (3-13); PLATELET COUNT 134 10^3/uL (150-450); RED BLOOD COUNT 3.83 10^6/uL (3.72-5.28); RED CELL DISTRIBUTION WIDTH 14.1 % (11.5-14.0); SEGMENTED NEUTROPHILS % (AUTO) 88.2 % (42-78); TOTAL CELLS COUNTED % (AUTO) 100 %; WHITE BLOOD COUNT 16.4 10^3/uL (4.0-10.5)
[2019-01-03] MEDS ORDERED: AZITHROMYCIN 1 GM SUSP PACKET ONE (08:29)
[2019-01-03] MEDS ORDERED: EPHEDRINE SULFATE INJ 50 MG/1 ML AMPULE ONE (08:58)
[2019-01-03] MEDS ORDERED: FENTANYL/BUPIVACAINE/NS/PF 300 MCG/150 ML RTUINJ EPI ONE (08:59)
[2019-01-03] MEDS ORDERED: BUPIVACAINE HCL 0.25 % INJ/PF (2.5 MG/1 ML) 30 ML VIAL ONE (08:59)
[2019-01-03] MEDS ORDERED: OXYTOCIN/NORMAL SALINE 20 UNIT/1,000 ML RTUINJ IV PRN ×2 (10:47→18:19)
--- NOTE | 2019-01-03 15:23 | Warning Signs in Babies ---
VOD Warning Signs Datetime Report Generated by [facility]: 01/03/2019 15:22 VOD#608 -Warning Signs in Babies: Needs to be viewed. (01/03/2019 15:10:Nancy Rubi RN)
--- NOTE | 2019-01-03 15:58 | Warning Signs in Babies ---
VOD Warning Signs Datetime Report Generated by [facility]: 01/03/2019 15:58 VOD#608 -Warning Signs in Babies: Viewed with Parent(s)/Family (01/03/2019 15:57:Nancy Rubi RN)
--- NOTE | 2019-01-03 16:26 | Delivery Summary ---
Del Sum A-C Datetime Report Generated by CPN: 01/03/2019 16:26 DELIVERY PERSONNEL DELIVERY PERSONNEL: [id number] Delivery Doctor:: Petty Keyes CNM Nurse Acid Correction Hand Certified:: Petty Keyes CNM Labor and Delivery Nurse:: Nancy Rubi RNwinterizer Nurse:: Rosita Guerra RN Student Observers:: Citlalli Travis, student Jamil Cotton/NGUYEN: Charisse Gongora, ST MATERNAL INFORMATION Delivery Anesthesia: Epidural Medications After Delivery: Pitocin Bolus-Please Comment; Pitocin Drip 20 Units/1000ml NSS Meds After Delivery Comment: Pitocin 20 units in 1000 normal saline bolus. Maternal Complications: None Provider Comments: Pt , FHTs in 80s, Dr. Díaz called to assist with delivery. SVDVM over intact perineum assisted with Modified Ritgen maneuver per Dr. Díaz. Infant del OA to IRWIN with compound Lt hand, stimulated and placed on mothers abd, terminal mec noted. Cord clamped x 2 cut after 2 min per FOB. Lacerations repaired as above. Placenta intact via lau with trailing membranes. LABOR SUMMARY EDC: 01/10/2019 00:00 No. Babies in Womb: 1 Attempted: No Labor Anesthesia: Epidural LABOR INFORMATION Reason for Induction: Not Applicable Onset of Labor: 01/03/2019 06:00 Complete Dilatation: 01/03/2019 13:09 Oxytocin: Augmentation Group B Beta Strep: negative Steroids Given: None Reason Steroids Not Administered: Not Applicable MEMBRANES Membranes Rupture Method: Artificial Rupture of Membranes: 01/03/2019 09:46 Length of Rupture (hr): 5.03 Amniotic Fluid Color: Clear Amniotic Fluid Amount: Small Amniotic Fluid Odor: Normal STAGES OF LABOR Stage 1 hr: 7 Stage 1 min: 9 Stage 2 hr: 1 Stage 2 min: 39 Stage 3 hr: 0 Stage 3 min: 15 Total Time in Labor hr: 9 Total Time in Labor min: 3 VAGINAL DELIVERY Episiotomy: None Laceration #1: Periurethral Laceration Extension #1: First Degree Other Laceration: Right labial Laceration Repair: Yes Laceration Repair Note: 3.0 chromic used for repair Sponge Count Correct: Yes Sharps Count Correct: Yes CSECTION DELIVERY Primary Indication: N/A Secondary Indication: N/A CSection Incidence: N/A Labor: N/A Elective: N/A BABY A INFORMATION Delivery Date/Time: 01/03/2019 14:48 Method of Delivery: Vaginal Born in Route : No : N/A Forceps: N/A Vacuum Extraction: N/A Shoulder Dystocia : No PRESENTATION/POSITION BABY A Presentation: Cephalic Cephalic Presentation: Vertex Vertex Position: Right Occipital Posterior Breech Presentation: N/A PLACENTA INFORMATION BABY A Placenta Delivery Time : 01/03/2019 15:03 Placenta Method of Delivery: Spontaneous Placenta Status: Delivered SCORES BABY A Heart Rate 1 min: >100 bpm Resp Effort 1 min: Good Cry Reflex Irritability 1 min: Cough or Sneeze or Pulls Away Muscle Tone 1 min: Active Motion Color 1 min: Blue/Pale Resuscitation Effort 1 min: Tactile Stimulation SCORE 1 MIN: 8 Heart Rate 5 min: >100 bpm Resp Effort 5 min: Good Cry Reflex Irritability 5 min: Cough or Sneeze or Pulls Away Muscle Tone 5 min: Active Motion Color 5 min: Body [place], Extremities Blue Resuscitation Effort 5 min: N/A SCORE 5 MIN: 9 INFORMATION BABY A Gestational Age at Delivery: 39.0 Gestational Status: Full Term- 39- 40.6 Weeks Infant Outcome : Liveborn Condition : Stable Sex: Male IDENTIFICATION BABY A Infant Verification Date/Time: 01/03/2019 14:59 ID Band Number: [id number] Mother's Name Verified: Yes Infant RN Verifying : K Greyson RN Additional Verifying Personnel: [facility] RN WEIGHT/LENGTH BABY A Birthweight (gm): 3318 Weight (lb): 7 Infant Weight (oz): 5 Infant Length (in): 20.00 Infant Length (cm): 50.80 CORD INFORMATION BABY A No. Cord Vessels: 3 Nuchal Cord- Other: Left compund hand Cord Blood Taken: Yes-For Eval (Mom's Blood Type - or O+) Suction: Mouth; Nose ASSESSMENT BABY A Physical Findings at Delivery: Caput Succedaneum Respirations: Appears Normal Skin to Skin: Yes Skin to Skin Time (min): 60 Packaging Sales Representative/ALS Called : No Care By: D Maria Luisajackyoriliset, RN Transferred To: Remains with Mother BABY B INFORMATION : N/A SIGNATURES Assignment: Yin Díaz MD Signature: with User ID: [email or web address] : with User ID: [email or web address] : I was personally available for consultation and serving as supervising physician for the MLP.
[2019-01-03] MEDS ORDERED: DIBUCAINE 1% OINTMENT 56 GM TP PRN (18:19)
[2019-01-03] MEDS ORDERED: ZOLPIDEM TARTRATE 5 MG TABLET PO PRN (18:19)
[2019-01-03] MEDS ORDERED: ACETAMINOPHEN WITH CODEINE #3 TABLET PO PRN ×2 (18:19)
[2019-01-03] MEDS ORDERED: PROMETHAZINE HCL 25 MG SUPP.RECT PR PRN (18:19)
[2019-01-03] MEDS ORDERED: GLYCERIN/WITCH HAZEL LEAF 1 EACH MED..WIPE TP PRN (18:19)
[2019-01-03] MEDS ORDERED: DIPH/PERTUSS(ACELL)/TETANUS VAC/PF 0.5 ML SYR (>=10YO) IM PRN (18:19)
[2019-01-03] MEDS ORDERED: PSEUDOEPHEDRINE HCL 30 MG TABLET PO PRN (18:19)
[2019-01-03] MEDS ORDERED: MAGNESIUM HYDROXIDE SUSP 30 ML UDCUP PO PRN (18:19)
[2019-01-03] MEDS ORDERED: MEASLES,MUMPS&RUBELLA VACC/PF 0.5 ML VIAL SUBCUT PRN (18:19)
[2019-01-03] MEDS ORDERED: BENZOCAINE/MENTHOL AEROSOL SPRAY 56 ML TOP PRN (18:19)
[2019-01-03] MEDS ORDERED: DIPHENHYDRAMINE HCL 25 MG CAPSULE PO PRN (18:19)
[2019-01-03] MEDS ORDERED: PROMETHAZINE HCL INJ 25 MG/1 ML VIAL IV PRN (18:19)
[2019-01-03] MEDS ORDERED: PROMETHAZINE HCL 25 MG TABLET PO PRN (18:19)
[2019-01-03] MEDS ORDERED: ACETAMINOPHEN 325 MG TABLET PO PRN (18:19)
[2019-01-03] MEDS ORDERED: NA PHOS,M-B/NA PHOS,DI-BA (ADULT) 133 ML ENEMA PR PRN (18:19)
[2019-01-03] MEDS: FERROUS SULFATE 325 MG TABLET PO SCH (19:10)
[2019-01-03] MEDS: DOCUSATE SODIUM 100 MG CAPSULE PO SCH (19:10)
[2019-01-03] MEDS: IBUPROFEN 800 MG TABLET PO SCH (21:18)
[2019-01-03] MEDS: FAMOTIDINE 20 MG TABLET PO SCH (21:19)
[2019-01-04] MEDS: ACETAMINOPHEN WITH CODEINE #3 TABLET PO PRN ×3 (01:43→18:38)
[2019-01-04 05:14] LABS: ABSOLUTE LYMPHOCYTES (AUTO) 1.3 10^3/uL (0.5-4.7); ABSOLUTE NEUT (AUTO) 11.5 10^3/uL (1.7-8.2); BASOPHILS % (AUTO) 0.2 % (0-2); EOSINOPHILS % (AUTO) 0.2 % (0-6); HEMATOCRIT 33.6 % (36.0-47.0); HEMOGLOBIN 11.7 g/dL (12.0-15.5); LYMPHOCYTES % (AUTO) 9.5 % (13-45); MEAN CORPUSCULAR HEMOGLOBIN 33.6 pg (27.0-33.4); MEAN CORPUSCULAR HGB CONC 34.8 g/dL (32.0-36.0); MEAN CORPUSCULAR VOLUME 97 fl (80-97); MONOCYTES % (AUTO) 7.3 % (3-13); PLATELET COUNT 117 10^3/uL (150-450); RED BLOOD COUNT 3.48 10^6/uL (3.72-5.28); RED CELL DISTRIBUTION WIDTH 14.1 % (11.5-14.0); SEGMENTED NEUTROPHILS % (AUTO) 82.8 % (42-78); TOTAL CELLS COUNTED % (AUTO) 100 %; WHITE BLOOD COUNT 13.9 10^3/uL (4.0-10.5)
[2019-01-04] MEDS: IBUPROFEN 800 MG TABLET PO SCH ×3 (06:52→21:32)
[2019-01-04] MEDS: SENNOSIDES/DOCUSATE 8.6-50 MG 1 EACH TABLET PO SCH (10:14)
[2019-01-04] MEDS: DOCUSATE SODIUM 100 MG CAPSULE PO SCH ×2 (10:15→18:38)
[2019-01-04] MEDS: FERROUS SULFATE 325 MG TABLET PO SCH ×2 (10:15→18:38)
[2019-01-04] MEDS: PRENATAL VITAMIN W DHA CAPSULE PO SCH (10:15)
[2019-01-04] MEDS: FAMOTIDINE 20 MG TABLET PO SCH ×2 (10:15→21:32)
--- NOTE | 2019-01-04 11:53 | PDOC PROGRESS REPORT ---
Subjective-OB Progress Note for:: 01/04/19 Subjective: reports pain controlled with current meds, bleeding slowing. denies needs. Physical Exam (OB) Vital Signs: Temp Pulse Resp BP Pulse Ox 97.8 F 75 15 135/74 H 99 01/04/19 07:39 01/04/19 07:39 01/04/19 07:39 01/04/19 07:39 01/04/19 07:39 Intake & Output 01/03/19 01/04/19 01/05/19 06:59 06:59 06:59 Intake Total 200 200 Balance 200 200 Weight 91.6 kg - Abdomen Description: Soft Hernia Present: No Fundal Description: Firm, Midline Fundal Height: u/u - u/2 - Abdominal Distension: No distension Tenderness: Nontender - Extremities Lower extremities: Kathia's sign - neg Calf: Normal, Nontender Objective-Diagnostic Laboratory: 01/04/19 04:43 01/04/19 04:43 WBC 13.9 H RBC 3.48 L Hgb 11.7 L Hct 33.6 L MCV 97 MCH 33.6 H MCHC 34.8 RDW 14.1 H Plt Count 117 L Seg Neutrophils % 82.8 H Lymphocytes % 9.5 L Monocytes % 7.3 Eosinophils % 0.2 Basophils % 0.2 Absolute Neutrophils 11.5 H Absolute Lymphocytes 1.3 Absolute Monocytes 1.0 Absolute Eosinophils 0.0 Absolute Basophils 0.0 Assessment and Plan(PN) - Assessment and Plan (1) Cannabis abuse Is this a current diagnosis for this admission?: Yes (2) Obstetric labial laceration, delivered, current hospitalization Is this a current diagnosis for this admission?: Yes (3) Vaginal delivery Is this a current diagnosis for this admission?: Yes - Time Spent with Patient Time with patient: Less than 15 minutes Medications reviewed and adjusted accordingly: Yes - Disposition Anticipated Discharge: Home Within: within 24 hours
[2019-01-05] MEDS: IBUPROFEN 800 MG TABLET PO SCH ×2 (05:31→13:30)
[2019-01-05] MEDS: ACETAMINOPHEN WITH CODEINE #3 TABLET PO PRN (08:12)
[2019-01-05 08:47] VITALS: BP 115/76
[2019-01-05] MEDS: SENNOSIDES/DOCUSATE 8.6-50 MG 1 EACH TABLET PO SCH (09:52)
[2019-01-05] MEDS: FAMOTIDINE 20 MG TABLET PO SCH (09:52)
[2019-01-05] MEDS: FERROUS SULFATE 325 MG TABLET PO SCH (09:52)
[2019-01-05] MEDS: PRENATAL VITAMIN W DHA CAPSULE PO SCH (09:52)
[2019-01-05] MEDS: DOCUSATE SODIUM 100 MG CAPSULE PO SCH (09:53)
[2019-01-05] MEDS ORDERED: MEDROXYPROGESTERONE ACET INJ 150 MG/1 ML VIAL IM ONE ×2 (10:32→13:30)
--- NOTE | 2019-01-05 10:35 | PDOC DISCHARGE SUMMARY ---
Final Diagnosis Discharge Date: 01/05/19 - Final Diagnosis (1) Cannabis abuse Is this a current diagnosis for this admission?: Yes (2) Obstetric labial laceration, delivered, current hospitalization Is this a current diagnosis for this admission?: Yes (3) Vaginal delivery Is this a current diagnosis for this admission?: Yes (4) Chlamydia infection affecting Is this a current diagnosis for this admission?: Yes (5) SROM (spontaneous rupture of membranes) Is this a current diagnosis for this admission?: Yes Discharge Data - Discharge Medication Prescriptions: Ibuprofen [Motrin 800 mg Tablet] 800 mg PO Q8HP PRN #20 tablet PRN Reason: Abdominal Cramping Vit/Dha [ Multi + Dha Capsule] 1 cap PO DAILY #90 capsule Home Medications: Ibuprofen [Motrin 800 mg Tablet] 800 mg PO Q8HP PRN #20 tablet 01/05/19 Vit/Dha [ Multi + Dha Capsule] 1 cap PO DAILY #90 capsule 01/05/19 Reason(s) for Admission: Onset of Labor Procedures: Ultrasound Intrapartum Procedure(s): Spontaneous Vaginal Delivery Complication(s): Laceration-Labial, Laceration-Periurethral - Diagnosis Test Laboratory: Temp Pulse Resp BP Pulse Ox 97.4 F 82 16 115/76 98 01/05/19 08:20 01/05/19 08:20 01/05/19 08:20 01/05/19 08:20 01/05/19 08:20 01/03/19 01/03/19 01/04/19 06:45 08:12 04:43 RBC 3.83 3.48 L Hgb 12.6 11.7 L Hct 36.9 33.6 L Urine Opiates Screen NEGATIVE - Discharge information/Instructions Discharge Activity: Activity As Tolerated, Balance Activity w/Rest, No Lifting Over 10 Pounds, Pelvic Rest, No tub bath, Walk Frequently Discharge Diet: As Tolerated, Regular Disposition: HOME, SELF-CARE Follow up with: [facility] in: 4, 5, Weeks
[2019-01-05 13:18] LABS: CHLAM PCR NOT DETECTED (NOT DETECT); GON PCR NOT DETECTED (NOT DETECT)
== END 2019-01-05 16:00 | disposition home or self-care (01) | DRG 806 ==
LOC: LC 06:32 → LR 07:14 → 2S 17:12
PROVIDERS: ADMIT Student in an Organized Health Care Education/Training Program; ATTEND Student in an Organized Health Care Education/Training Program
PROC: 10E0XZZ Delivery of Products of Conception, External Approach (ICD-10-PCS; principal; 2019-01-03)
PROC: 10907ZC Drainage of Amniotic Fluid, Therapeutic from Products of Conception, Via Natural or Artificial Opening (ICD-10-PCS; 2019-01-03)
PROC: 4A1HXCZ Monitoring of Products of Conception, Cardiac Rate, External Approach (ICD-10-PCS; 2019-01-03)
PROC: 0UQMXZZ Repair Vulva, External Approach (ICD-10-PCS; 2019-01-03)
DX: O32.6XX0 Maternal care for compound presentation, not applicable or unspecified (principal); O99.324 Drug use complicating childbirth; Z37.0 Single live birth; F12.10 Cannabis abuse, uncomplicated; O71.82 Other specified trauma to perineum and vulva; O70.0 First degree perineal laceration during delivery; Z3A.39 39 weeks gestation of pregnancy
CPT/HCPCS: 36415; 80307; 80349; 81005; 84112; 85025; 86592; 86850; 86900; 86901; 87491; 87591; G0480; J0456; J1050; J2590; J3010; J3490; Q0144

== ENCOUNTER 2019-08-26 14:00 | Emergency (ER) | payer BC, MEDICAID ==
[2019-08-26] MEDS ORDERED: ONDANSETRON 4 MG TAB.RAPDIS PO ONE (14:43)
--- NOTE | 2019-08-26 14:49 | ER Document Report ---
ED General - General Chief Complaint: Abdominal Pain Stated Complaint: ABDOMINAL PAIN/VAGINAL DISCOMFORT Time Seen by Provider: 08/26/19 14:19 Primary Care Provider: SHANKAR OJEDA DO [ACTIVE STAFF] - Follow up in 1 week Mode of Arrival: Wheelchair Information source: Patient Notes: 24-year-old female presents emergency department with reports that she feels like her vagina is falling out or maybe she has a tampon stuck in her vagina. She reports the symptoms started today. Also complains of abdominal pain nausea loose bowels for a week. Has history of IBS. Patient reports she had sex for the first time in 3 weeks yesterday and thought maybe that is why her vagina was feeling that way. She denies vaginal discharge. Reports pain with void for the past week. Denies fever complains of nausea denies vomiting. Patient reports pain increases when she stands up. TRAVEL OUTSIDE OF THE [place] IN LAST 30 DAYS: No - HPI Onset: Other Onset/Duration: Persistent Associated symptoms: Nausea Exacerbated by: Denies Relieved by: Denies Similar symptoms previously: No Recently seen / treated by doctor: No - Related Data Allergies/Adverse Reactions: No Known Allergies Allergy (Verified 08/26/19 14:40) Past Medical History - General Information source: Patient - Social History Smoking Status: Never Smoker Chew tobacco use (# tins/day): No Frequency of alcohol use: None Drug Abuse: Marijuana - Daily Lives with: Family Family History: Reviewed & Not Pertinent Patient has suicidal ideation: No Patient has homicidal ideation: No - Past Medical History Cardiac Medical History: Denies: Hx Coronary Artery Disease, Hx Heart Attack, Hx Hypertension Pulmonary Medical History: Denies: Hx Asthma, Hx Bronchitis, Hx COPD, Hx Pneumonia Neurological Medical History: Denies: Hx Cerebrovascular Accident, Hx Seizures Renal/ Medical History: Denies: Hx Peritoneal Dialysis GI Medical History: Reports: Hx Irritable Bowel Musculoskeletal Medical History: Denies Hx Arthritis Surgical Hx: Negative - Immunizations Hx Diphtheria, Pertussis, Tetanus Vaccination: No Review of Systems - Review of Systems Notes: Review HPI for review of systems., All other systems negative Physical Exam - Vital signs Vitals: Temp Pulse BP Pulse Ox 98.2 F 81 108/59 L 97 08/26/19 18:58 08/26/19 18:58 08/26/19 18:58 08/26/19 18:58 - Notes Notes: PHYSICAL EXAMINATION: GENERAL: Well-appearing and in no acute distress HEAD: Atraumatic, normocephalic. EYES: extraocular movements intact, sclera anicteric, conjunctiva are normal. ENT: nares patent, . Moist mucous membranes. NECK: Normal range of motion, supple without lymphadenopathy LUNGS: CTAB and equal. No wheezes rales or rhonchi. HEART: Regular rate and rhythm without murmurs ABDOMEN: Soft, LUQ, low abdominal tenderness. No guarding, no rebound EXTREMITIES: Normal range of motion NEUROLOGICAL: Cranial nerves grossly intact. Normal sensory/motor exams. PSYCH: Normal mood, normal affect. SKIN: Warm, Dry, normal turgor, no rashes or lesions noted - Genitourinary External exam: Normal Speculum exam: Normal Vaginal bleeding: None Bimanuel exam: Normal. No: Cervical motion tender, Adnexal mass, Adnexal tenderness Course - Re-evaluation Re-evalutation: 08/26/19 14:47 This 24-year-old female presents emergency department with reports that it feels like her vagina is falling out or maybe she has a tampon stuck in her vagina. Reports she had a vaginal in January. Reports she had sex for the first time last night in 3 weeks. Patient also complains of left upper quad lower abdominal pain. Reports history of IBS. Complains of nausea has not vomited no fever. Patient instructed on plan of care to include labs transvaginal ultrasound and pelvic. She verbalized understanding and agreed to plan of care. 08/26/19 18:54 Labs unremarkable ultrasound suggest pelvic congestion syndrome possibly PCOS. Pelvic exam is benign. Patient instructed on all results. Instructed on rest avoid sex follow-up with DIRECTOR FRAUD for recheck and evaluation for possible pelvic congestion syndrome possibly PCOS. She verbalized understanding to all instructions. Transvaginal US 08/26/19 14:43 IMPRESSION: 1. Multiple peripheral ovarian follicles, correlate for polycystic ovarian syndrome. 2. Prominent pelvic vessels may suggest pelvic congestion syndrome. Laboratory 08/26/19 08/26/19 08/26/19 15:35 15:40 15:40 WBC 8.7 RBC 4.13 Hgb 13.7 Hct 39.8 MCV 96 MCH 33.0 MCHC 34.3 RDW 14.0 Plt Count 183 Lymph % (Auto) 19.1 Dougherty % (Auto) 6.4 Eos % (Auto) 0.5 Baso % (Auto) 0.5 Absolute Neuts (auto) 6.4 Absolute Lymphs (auto) 1.7 Absolute Monos (auto) 0.6 Absolute Eos (auto) 0.0 Absolute Basos (auto) 0.0 Seg Neutrophils % 73.5 Sodium 141.8 Potassium 4.3 Chloride 103 Carbon Dioxide 31 H Anion Gap 8 BUN 14 Creatinine 0.95 Est GFR ( Amer) > 60 Est GFR (MDRD) Non-Af > 60 Glucose 83 Calcium 9.9 Total Bilirubin 0.6 Direct Bilirubin 0.2 Neonat Total Bilirubin Not Reportable Neonat Direct Bilirubin Not Reportable Neonat Indirect Bili Not Reportable AST 19 ALT 10 Alkaline Phosphatase 56 Total Protein 7.9 Albumin 4.5 Serum HCG, Qual Urine Color Urine Appearance Urine pH Ur Specific Dixon Urine Protein Urine Glucose (UA) Urine Ketones Urine Blood Urine Nitrite (Reflex) Urine Bilirubin Urine Urobilinogen Leukocyte Esterase Rfl Urine RBC (Auto) Urine WBC (Reflex) Squamous Epi Cells Auto Calcium Oxalate Cr Auto Urine Mucus (Auto) Urine Ascorbic Acid Trichomonas (Wet Prep) Vaginal WBC Vaginal RBC Vaginal Yeast Chlamydia DNA (PCR) NOT DETECTED N.gonorrhoeae DNA (PCR) NOT DETECTED 08/26/19 08/26/19 08/26/19 15:40 16:58 17:27 WBC RBC Hgb Hct MCV MCH MCHC RDW Plt Count Lymph % (Auto) Dougherty % (Auto) Eos % (Auto) Baso % (Auto) Absolute Neuts (auto) Absolute Lymphs (auto) Absolute Monos (auto) Absolute Eos (auto) Absolute Basos (auto) Seg Neutrophils % Sodium Potassium Chloride Carbon Dioxide Anion Gap BUN Creatinine Est GFR ( Amer) Est GFR (MDRD) Non-Af Glucose Calcium Total Bilirubin Direct Bilirubin Neonat Total Bilirubin Neonat Direct Bilirubin Neonat Indirect Bili AST ALT Alkaline Phosphatase Total Protein Albumin Serum HCG, Qual NEGATIVE Urine Color YELLOW Urine Appearance SLIGHTLY-CLOUDY Urine pH 6.0 Ur Specific Dixon 1.028 Urine Protein 30 H Urine Glucose (UA) NEGATIVE Urine Ketones NEGATIVE Urine Blood NEGATIVE Urine Nitrite (Reflex) NEGATIVE Urine Bilirubin NEGATIVE Urine Urobilinogen 2.0 H Leukocyte Esterase Rfl NEGATIVE Urine RBC (Auto) 1 Urine WBC (Reflex) 2 Squamous Epi Cells Auto 1 Calcium Oxalate Cr Auto FEW Urine Mucus (Auto) MANY Urine Ascorbic Acid 20 H Trichomonas (Wet Prep) NO TRICHOMONAS SEEN Vaginal WBC 1+ WBCS SEEN Vaginal RBC RARE RBCS SEEN Vaginal Yeast NO YEAST SEEN Chlamydia DNA (PCR) N.gonorrhoeae DNA (PCR) - Vital Signs Vital signs: Temp Pulse Resp BP Pulse Ox 98.2 F 81 108/59 L 97 08/26/19 18:58 08/26/19 18:58 08/26/19 18:58 08/26/19 18:58 - Laboratory Result Diagrams: 08/26/19 15:40 08/26/19 15:40 Laboratory results interpreted by me: 08/26/19 08/26/19 15:40 16:58 Carbon Dioxide 31 H Urine Protein 30 H Urine Urobilinogen 2.0 H Urine Ascorbic Acid 20 H - Diagnostic Test Radiology reviewed: Reports reviewed Procedures - Pelvic Exam Pelvic exam Wet prep obtained: Yes Herpes culture obtained: No POC sent to lab: No Foreign body removed: No Bimanual exam performed: Yes Witnessed by: arcadio ruth Discharge - Discharge Clinical Impression: vaginal pressure, Pelvic congestion syndrome Condition: Stable Disposition: HOME, SELF-CARE Instructions: [facility] Additional Instructions: *You have been evaluated for abdominal pain, vaginal pressure, pelvic congestion syndrome *Your STD cultures were negative *The ultrasound showed prominent vessels which may suggest pelvic congestion syndrome. Also peripheral ovarian follicles which could indicate polycystic ovarian syndrome. *Take Tylenol and Motrin as indicated for pain *Avoid sex until follow up with DIGITAL EDITOR *Follow up with a DIGITAL EDITOR within the next week for review of the ultrasound and recheck *Return to ED for worsening condition, changes, needs Forms: Return to Work Referrals: SHANKAR OJEDA DO [ACTIVE STAFF] - Follow up in 1 week
[2019-08-26 16:00] LABS: ABSOLUTE LYMPHOCYTES (AUTO) 1.7 10^3/uL (0.5-4.7); ABSOLUTE MONOCYTES (AUTO) 0.6 10^3/uL (0.1-1.4); ABSOLUTE NEUT (AUTO) 6.4 10^3/uL (1.7-8.2); BASOPHILS % (AUTO) 0.5 % (0-2); EOSINOPHILS % (AUTO) 0.5 % (0-6); HEMATOCRIT 39.8 % (36.0-47.0); HEMOGLOBIN 13.7 g/dL (12.0-15.5); LYMPHOCYTES % (AUTO) 19.1 % (13-45); MEAN CORPUSCULAR HGB CONC 34.3 g/dL (32.0-36.0); MEAN CORPUSCULAR VOLUME 96 fl (80-97); MONOCYTES % (AUTO) 6.4 % (3-13); PLATELET COUNT 183 10^3/uL (150-450); RED BLOOD COUNT 4.13 10^6/uL (3.72-5.28); SEGMENTED NEUTROPHILS % (AUTO) 73.5 % (42-78); TOTAL CELLS COUNTED % (AUTO) 100 %; WHITE BLOOD COUNT 8.7 10^3/uL (4.0-10.5)
[2019-08-26 16:22] LABS: ALBUMIN 4.5 g/dL (3.5-5.0); ALKALINE PHOSPHATASE 56 U/L (38-126); ANION GAP 8 (5-19); ASPARTATE AMINO TRANSFERASE 19 U/L (14-36); BILIRUBIN,DIRECT 0.2 mg/dL (0.0-0.4); BILIRUBIN,TOTAL 0.6 mg/dL (0.2-1.3); BLOOD UREA NITROGEN 14 mg/dL (7-20); CALCIUM 9.9 mg/dL (8.4-10.2); CARBON DIOXIDE 31 mmol/L (22-30); CHLORIDE 103 mmol/L (98-107); GLUCOSE 83 mg/dL (75-110); POTASSIUM 4.3 mmol/L (3.6-5.0); TOTAL PROTEIN 7.9 g/dL (6.3-8.2)
--- NOTE | 2019-08-26 16:35 | RADIOLOGY REPORT (SQ) ---
EXAM DESCRIPTION: U/S NON OB PEL TV W/DOPPLER COMPLETED DATE/TIME: 08/26/2019 4:18 pm REASON FOR STUDY: vaginal pain, feels like her vagina is falling out LMP 08/18/2019 COMPARISON: None. TECHNIQUE: Dynamic and static grayscale images acquired of the pelvis via transvaginal approach and recorded on PACS. Additional selected color Doppler and spectral images recorded. LIMITATIONS: None. FINDINGS: UTERUS: Contour normal. No mass. ENDOMETRIAL STRIPE: No focal or generalized thickening. No masses. CERVIX: 2.6 cm. No nabothian cysts. RIGHT OVARY AND DOPPLER: Normal size. No worrisome masses. Normal arterial vascular flow without evid ence for torsion. Multiple follicles. LEFT OVARY AND DOPPLER: Normal size. No worrisome masses. Normal arterial vascular flow without evide nce for torsion. Multiple follicles. FREE FLUID: None noted. OTHER: Prominent vascularity around the uterus. MEASUREMENTS: UTERUS: 7.7 x 3.1 x 5.4 cm. ENDOMETRIAL STRIPE: 7 mm. RIGHT OVARY: 2.8 x 2.5 x 2 cm. LEFT OVARY: 3.2 x 2.6 x 1.6 cm. IMPRESSION: 1. Multiple peripheral ovarian follicles, correlate for polycystic ovarian syndrome. 2. Prominent pelvic vessels may suggest pelvic congestion syndrome. TECHNICAL DOCUMENTATION: JOB ID: [id number] [employer]- All Rights Reserved Rev-12/18 Reading location - IP/workstation name: [email or web address]
[2019-08-26 17:29] LABS: CHLAM PCR NOT DETECTED (NOT DETECT)
[2019-08-26 17:36] LABS: APPEARANCE,URINE SLIGHTLY-CLOUDY; BILIRUBIN,URINE NEGATIVE (NEGATIVE); CALCIUM OXALATE CRYSTALS,URINE FEW /HPF; COLOR,URINE YELLOW; GLUCOSE, URINE NEGATIVE (NEGATIVE); KETONES,URINE NEGATIVE (NEGATIVE); PROTEIN,URINE 30 mg/dL (NEGATIVE); URINE SPECIFIC GRAVITY 1.028
[2019-08-26 18:34] LABS: RBCS (WET MOUNT) RARE RBCS SEEN; T.VAGINALIS (WET MOUNT) NO TRICHOMONAS SEEN; WBCS (WET MOUNT) 1+ WBCS SEEN; YEAST (WET MOUNT) NO YEAST SEEN
[2019-08-26 18:59] VITALS: BP 108/59
== END 2019-08-26 18:59 | disposition home or self-care (01) ==
LOC: ER 14:00
DX: N94.89 Other specified conditions associated with female genital organs and menstrual cycle (principal); R10.2 Pelvic and perineal pain; R10.9 Unspecified abdominal pain; R11.0 Nausea; R19.7 Diarrhea, unspecified
CPT/HCPCS: 99284; 36415; 87210; 84703; 85025; 80053; 81001; 87491; 87591; 76830; 93976; S0119

== ENCOUNTER 2020-08-12 01:11 | Inpatient (IN) | payer BC, MEDICAID ==
[2020-08-12 01:39] LABS: APPEARANCE,URINE CLEAR; BILIRUBIN,URINE NEGATIVE (NEGATIVE); COLOR,URINE YELLOW; GLUCOSE, URINE NEGATIVE (NEGATIVE); KETONES,URINE NEGATIVE (NEGATIVE); LEUKOCYTE ESTERASE,URINE NEGATIVE (NEGATIVE); NITRITE,URINE NEGATIVE (NEGATIVE); PROTEIN,URINE 30 mg/dL (NEGATIVE); URINE SPECIFIC GRAVITY 1.019; UROBILINOGEN,URINE NEGATIVE mg/dL (<2.0)
[2020-08-12 01:53] LABS: URINE AMPHETAMINES SCREEN NEGATIVE; URINE BARBITURATES SCREEN NEGATIVE; URINE BENZODIAZEPINES SCREEN NEGATIVE; URINE COCAINE SCREEN NEGATIVE; URINE METHADONE SCREEN NEGATIVE; URINE PHENCYCLIDINE SCREEN NEGATIVE
[2020-08-12 02:22] LABS: URINE MARIJUANA (THC) SCREEN UNCONFIRMED POSITIVE
[2020-08-12] MEDS ORDERED: RINGERS SOLUTION,LACTATED 1,000 ML IV PRN (04:02)
[2020-08-12] MEDS ORDERED: NALBUPHINE HCL INJ 10 MG/1 ML AMPULE ONE (04:19)
[2020-08-12] MEDS ORDERED: PROMETHAZINE HCL INJ 25 MG/1 ML VIAL IV ONE (04:19)
[2020-08-12] MEDS ORDERED: PROMETHAZINE HCL INJ 25 MG/1 ML VIAL ONE (04:19)
[2020-08-12] MEDS ORDERED: MISOPROSTOL 0.2 MG TABLET ONE (06:14)
[2020-08-12] MEDS ORDERED: OXYTOCIN/0.9 % SODIUM CHLORIDE 0 UNIT/0 ML RTUINJ ONE (06:14)
[2020-08-12] MEDS ORDERED: OXYTOCIN 10 UNIT/ML VIAL ONE (06:14)
[2020-08-12] MEDS ORDERED: LIDOCAINE 1% INJ-PF (10 MG/ML) 30 ML SDV ONE (06:14)
[2020-08-12] MEDS ORDERED: MORPHINE SULFATE 10 MG/ML INJ ONE (06:31)
[2020-08-12] MEDS ORDERED: TERBUTALINE SULFATE INJ/PF 1 MG/1 ML SDV ONE (06:31)
[2020-08-12] MEDS ORDERED: MAGNESIUM SULFATE 20 GM/500 ML RTUINJ IV ONE (06:50)
[2020-08-12] MEDS ORDERED: MAGNESIUM SULFATE 4 GM/100 ML RTUPB IV ONE (06:50)
[2020-08-12 07:19] LABS: ABSOLUTE BASOPHILS # (AUTO) 0.1 10^3/uL (0.0-0.2); ABSOLUTE LYMPHOCYTES (AUTO) 2.4 10^3/uL (0.5-4.7); ABSOLUTE MONOCYTES (AUTO) 0.7 10^3/uL (0.1-1.4); ABSOLUTE NEUT (AUTO) 15.9 10^3/uL (1.7-8.2); BASOPHILS % (AUTO) 0.4 % (0-2); HEMATOCRIT 32.9 % (36.0-47.0); HEMOGLOBIN 11.2 g/dL (12.0-15.5); LYMPHOCYTES % (AUTO) 12.5 % (13-45); MEAN CORPUSCULAR HEMOGLOBIN 33.3 pg (27.0-33.4); MEAN CORPUSCULAR HGB CONC 33.9 g/dL (32.0-36.0); MEAN CORPUSCULAR VOLUME 98 fl (80-97); MONOCYTES % (AUTO) 3.6 % (3-13); PLATELET COUNT 185 10^3/uL (150-450); RED BLOOD COUNT 3.35 10^6/uL (3.72-5.28); RED CELL DISTRIBUTION WIDTH 13.2 % (11.5-14.0); SEGMENTED NEUTROPHILS % (AUTO) 83.5 % (42-78); TOTAL CELLS COUNTED % (AUTO) 100 %; WHITE BLOOD COUNT 19.1 10^3/uL (4.0-10.5)
[2020-08-12] MEDS ORDERED: NITROGLYCERIN/D5W 0 MG/0 ML RTUINJ IV ONE (07:19)
[2020-08-12] MEDS ORDERED: NITROGLYCERIN 0.4 MG/TAB 25 TAB/BOTTLE ONE (07:19)
[2020-08-12] MEDS ORDERED: OXYTOCIN/0.9 % SODIUM CHLORIDE 30 UNIT/500 ML RTUINJ ONE (07:33)
[2020-08-12] MEDS ORDERED: NORMAL SALINE 1000 ML 1,000 ML IV PRN (08:19)
[2020-08-12] MEDS ORDERED: SUCCINYLCHOLINE CHLORIDE INJ 200 MG/10 ML VIAL ONE (09:11)
[2020-08-12] MEDS ORDERED: CALCIUM GLUCONATE 1000 MG/10 ML INJ IV ONE (09:11)
[2020-08-12] MEDS: CEFAZOLIN INJ 1 GM VIAL ONE ×2 (09:50→09:51)
[2020-08-12] MEDS ORDERED: OXYTOCIN/0.9 % SODIUM CHLORIDE 30 UNIT/500 ML RTUINJ IV PRN (09:54)
[2020-08-12] MEDS ORDERED: DIPHENHYDRAMINE HCL 25 MG CAPSULE PO PRN (09:54)
[2020-08-12] MEDS ORDERED: MAGNESIUM HYDROXIDE SUSP 30 ML UDCUP PO PRN (09:54)
[2020-08-12] MEDS ORDERED: ACETAMINOPHEN WITH CODEINE #3 TABLET PO PRN (09:54)
[2020-08-12] MEDS ORDERED: FAMOTIDINE 20 MG TABLET PO PRN (09:54)
[2020-08-12] MEDS ORDERED: ACETAMINOPHEN 325 MG TABLET PO PRN (09:54)
[2020-08-12] MEDS ORDERED: BENZOCAINE/MENTHOL AEROSOL SPRAY 56 ML TOP PRN (09:54)
[2020-08-12] MEDS ORDERED: MAG HYDROX/AL HYDROX/SIMETH SUSP 30 ML UDCUP PO PRN (09:54)
[2020-08-12] MEDS ORDERED: ZOLPIDEM TARTRATE 5 MG TABLET PO PRN (09:54)
[2020-08-12] MEDS ORDERED: PSEUDOEPHEDRINE HCL 30 MG TABLET PO PRN (09:54)
[2020-08-12] MEDS ORDERED: VARICELLA VACC/PF (1350 UNIT/0.5 ML) 0.5 ML VIAL SUBCUT PRN (09:54)
[2020-08-12] MEDS ORDERED: GLYCERIN/WITCH HAZEL LEAF 1 EACH MED..WIPE TP PRN (09:54)
[2020-08-12] MEDS ORDERED: DIPH/PERTUSS(ACELL)/TETANUS VAC/PF 0.5 ML SYR (>=10YO) IM PRN (09:54)
[2020-08-12] MEDS ORDERED: MEASLES,MUMPS&RUBELLA VACC/PF 0.5 ML VIAL SUBCUT PRN (09:54)
[2020-08-12] MEDS ORDERED: DIBUCAINE 1% OINTMENT 28 GM TP PRN (09:54)
[2020-08-12] MEDS ORDERED: ACETAMINOPHEN 650 MG SUPP.RECT PR PRN (09:54)
[2020-08-12 10:10] LABS: HEMOGLOBIN 11.5 g/dL (12.0-15.5); MEAN CORPUSCULAR HEMOGLOBIN 31.4 pg (27.0-33.4); PLATELET COUNT 112 10^3/uL (150-450); RED BLOOD COUNT 3.68 10^6/uL (3.72-5.28); RED CELL DISTRIBUTION WIDTH 15.6 % (11.5-14.0)
[2020-08-12 10:23] LABS: MEAN CORPUSCULAR VOLUME 92 fl (80-97)
[2020-08-12 10:31] LABS: ABSOLUTE LYMPHOCYTES# (MANUAL) 0.8 10^3/uL (0.5-4.7); ABSOLUTE MONOCYTES # (MANUAL) 1.2 10^3/uL (0.1-1.4); BASOPHILS % (MANUAL) 0 % (0-2); EOSINOPHILS % (MANUAL) 0 % (0-6); LYMPHOCYTES % (MANUAL) 2 % (13-45); MONOCYTES % (MANUAL) 3 % (3-13); SEGMENTED NEUTROPHILS % (MAN) 95 % (42-78); TOTAL CELLS COUNTED 100
[2020-08-12 10:33] LABS: ANISOCYTOSIS SLIGHT; BURR CELLS SLIGHT; PLATELET COMMENT DECREASED; TOXIC GRANULATION 1+; TOXIC VACUOLATION PRESENT
--- NOTE | 2020-08-12 10:52 | Admission Physical ---
Datetime Report Generated by CPN: 08/12/2020 10:52 CURRENT ADMISSION Hx Assessment: The History has been Reviewed and is Current Chief Complaint: Uterine Contractions Admit Impression : Term, Intrauterine ; Active Labor; Ruptured Membranes Admit Plan: Admit to Unit; Initiate Labor Protocol ALLERGIES Medication Allergies: No Medication Allergies: No Known Allergies (08/26/2019) Latex: No Latex Allergies Food Allergies: no Environmental Allergies: no OBSTETRICAL HISTORY EDC: 08/13/2020 00:00 (Annotations: Data stored by CPN on behalf of user) : 3 Para: 1 Term: 1 : 0 SAB: 1 IAB: 0 Ectopic: 0 Livin Cesareans: 0 VBACs: 0 Multiple Births: 0 Gestational Diabetes: No Rh Sensitization: No Incompetent Cervix: No JAMAL: No Infertility: No ART Treatment: No Uterine Anomaly: No IUGR: No Hx Previous C/S: No Macrosomia: No Hx Loss/Stillborn: No PIH: No Hx : No Placenta Previa/Abruption: No Depression/PP Depression: Yes PTL/PROM: No Post Hemorrhage: No Current Procedures: Ultrasound Obstetrical History Comments: G1: 01/2017 SAB G2: 01/2019 39 weeks 7 lbs 5 oz male G3: current- late to [facility] d/t insurance, closed spaced SEE RECORDS Alcohol: No Marijuana : Yes (Annotations: Data stored by CPN on behalf of user) Marijuana Frequency: 3 - 5 Times Per Week Last Used: 08/03/2020 00:00 Previous Treatment: None Cocaine: No Other Illicit Drugs: No Cigarettes: Former Smoker. [id number] Cigarette Comments: 5 years ago MEDICAL HISTORY Diabetes: No Blood Transfusion: No Pulmonary Disease (Asthma, TB): No Breast Disease: No Hypertension: No Therapeutic Mentor Surgery: No Heart Disease: No Hosp/Surgery: Yes Autoimmune Disorder: No Anesthetic Complications: No Kidney Disease: No Abnormal Pap Smear: No Neuro/Epilepsy: No Psychiatric Disorders: No Other Medical Diseases: No Hepatitis/Liver Disease: No Significant Family History: No Varicosities/Phlebitis: No Trauma/Violence : No Thyroid Dysfunction: No Medical History Comments: childbirth 2019 INFECTIOUS HISTORY Gonorrhea: No Genital Herpes: Yes Chlamydia: Yes Tuberculosis: No Syphilis: No Hepatitis: No HIV/AIDS Exposure: No Rash or Viral Illness: No HPV: Yes Infectious History Comments: Trich at new OB KRISTIAN positive 05/30-negative 12.4, Ascus +HPV, 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 PHYSICAL EXAM General: Normal HEENT: Normal Neurologic: Normal Thyroid: Normal Heart: Normal Lungs: Normal Breast: Normal Back: Normal Abdomen: Normal Genitourinary Exam: Normal Extremities: Normal DTRs: Normal Pelvic Type: Adequate Vital Signs: Reviewed; Within Normal Limits VAGINAL EXAM Dilatation: 4 Effacement: 80 Station: -2 Contraction Comments: Regular every 2-3 minutes MEMBRANES Membranes: Ruptured Amniotic Fluid Color: Clear FETUS A EGA: 39.6 Monitoring: External US FHR- Baseline: 130 Variability: Moderate 6-25bpm Accelerations: 15X15 Decelerations: None FHR Category: Category I Presentation: Vertex Admit Comment: at 39.6 wks EGA in active labor. Arrived earlier this am and was having painful uterine contractions without cervical change. Then about 0600 her water broke-clear fluid and she was completely dilated. -Admit to LDR -CEFM and toco -NPO and IVFs: LR at 150cc/hr -GBS unknown, will check -History of one , plan PLANS FOR LABOR AND DELIVERY Labor and Delivery: None Pain Management: Epidural Feeding Preference: Breast Benefit of Breast Feed Discussed: Yes Circumcision: N/A INFORMED CONSENT Informed Consent Obtained: Vaginal Delivery; Risks, Benefits and Alternatives Discussed Signature: with User ID: [email or web address] : with User ID: [email or web address]
[2020-08-12] MEDS: ACETAMINOPHEN WITH CODEINE #3 TABLET PO PRN ×2 (12:27→21:15)
[2020-08-12] MEDS: CEFAZOLIN 2 GM/D5W RTU 2 GM/50 ML RTUPB IV SCH ×2 (15:09→21:14)
[2020-08-12] MEDS: IBUPROFEN 800 MG TABLET PO SCH ×2 (15:14→22:28)
--- NOTE | 2020-08-12 15:57 | Operative Report ---
Operative Report DATE OF SURGERY: 08/12/20 PREOPERATIVE DIAGNOSIS: Uterine inversion. hemorrhage. s/p Spontan eous vaginal delivery at 39+ weeks POSTOPERATIVE DIAGNOSIS: Same as above OPERATION: Replacement of uterus. Currettage of uterus. Placement of Bakri balloon SURGEON: ELY BERGERON 1ST SAMPLE BOOK MAKER: DANNIELLE HOLMAN ANESTHESIA: GA TISSUE REMOVED OR ALTERED: None COMPLICATIONS: None ESTIMATED BLOOD LOSS: Total estimated blood loss total from prior to OR to post op 3,500cc QUANTITATIVE BLOOD LOSS: 3,309 - OR and recovery INTRAOPERATIVE FINDINGS: Total uterine inversion, Large clot in vaginal vault. Once anesthesia on board and uterus replaced: currettage done and small amount of membranes noted. Uterus mild atony and Bakri placed with 100 cc sterile saline . Fundus firm at end of procedure and 2 below umbilicus PROCEDURE: IV fluids: Crystalloid IV fluids per anesthesia record. She had two large bore IVs with blood transfusing on entering OR. Mass transfusion protocol called and initiated Disposition: To recovery room in stable condition Description of the procedure: The patient was taken to the operating room where general anesthesia was administered and found to be adequate. She was then placed in the dorsol lithotomy position and prepped and draped in the usual sterile fashion. A timeout was taken. Using a sterile hand in vagina, my fist was used to replace the uterus. Just prior to this a dose of terbutaline 0.25 mg was given to help facilitate. This process required bimanual manipulation but was ultimately replaced. A bivalve speculum was used to bring the cervix into good view. A ring forcep was used to grasp the anterior lip of the cervix and a bango currettage was done and small amount of membranes was noted. The uterus sounded to approximately 12 cm. Gentle curettage continued in a circumferential manner until a gritty texture was noted. The curette was removed and bimanual massage done. Mildly atonic. Cytotec 1,000mg given MT and gloves changed. Bakri balloon placed and inflated to 100cc. No further trickling of blood from vagina. Fundus firm. The procedure was then terminated. The patient tolerated the procedure well all instrument sponge and needle counts were correct x2 for the procedure she will proceed to recovery room in stable condition
--- NOTE | 2020-08-12 16:07 | PDOC PROGRESS REPORT ---
Subjective Date:: 08/12/20 - Late entry for 1258 Subjective:: Stopped in patients room for assessement She reports feeling much better. No pain now. Reports "some bleedng on bed". No fever, chills, nausea, vomiting Has lindsay in and has not been up out of bed Reason For Visit: Physical Exam - Physical Exam Vital Signs: Temp Pulse Resp BP Pulse Ox 97.6 F 94 18 128/74 H 100 08/12/20 10:33 08/12/20 10:33 08/12/20 10:33 08/12/20 10:33 08/12/20 10:33 Intake & Output 08/11/20 08/12/20 08/13/20 06:59 06:59 06:59 Intake Total 3000 Balance 3000 Weight 83.4 kg General appearance: PRESENT: no acute distress, cooperative GI/Abdominal exam: PRESENT: soft - Non-tender Extremities exam: PRESENT: full ROM. ABSENT: calf tenderness, clubbing, pedal edema Neurological exam: PRESENT: alert, awake, oriented to person, oriented to place, oriented to time, oriented to situation, CN II-XII grossly intact. ABSENT: motor sensory deficit Psychiatric exam: PRESENT: appropriate affect, normal mood. ABSENT: homicidal ideation, suicidal ideation - Gynecological Exam Labia: normal Introitus: normal Perineum: normal - Bakri in place. Uterine fundus firm and 2 below. Small amount of blood on chux pad: 6 cm diameter [place]. There is drainage from the Bakri on to sheets in spot measuring 10-12 cm diameter but no clots just dilute bloody appearing drainage. No trickling from vault or Bakri presently Result Laboratory Results: 08/12/20 09:50 08/12/20 08/12/20 08/12/20 01:20 07:08 07:08 WBC 19.1 H RBC 3.35 L Hgb 11.2 L Hct 32.9 L MCV 98 H MCH 33.3 MCHC 33.9 RDW 13.2 Plt Count 185 Seg Neutrophils % 83.5 H Urine Color YELLOW Urine Appearance CLEAR Urine pH 7.0 Ur Specific [place] 1.019 Urine Protein 30 H Urine Glucose (UA) NEGATIVE Urine Ketones NEGATIVE Urine Blood NEGATIVE Urine Nitrite NEGATIVE Ur Leukocyte Esterase NEGATIVE Blood Type AB POSITIVE Antibody Screen NEGATIVE 08/12/20 09:50 WBC 40.0 H* D RBC 3.68 L Hgb 11.5 L Hct 34.0 L MCV 92 D MCH 31.4 MCHC 34.0 RDW 15.6 H Plt Count 112 L Seg Neutrophils % Not Reportable Urine Color Urine Appearance Urine pH Ur Specific [place] Urine Protein Urine Glucose (UA) Urine Ketones Urine Blood Urine Nitrite Ur Leukocyte Esterase Blood Type Antibody Screen Assessment & Plan - Diagnosis (1) hemorrhage Is this a current diagnosis for this admission?: Yes (2) Uterine inversion Is this a current diagnosis for this admission?: Yes (3) Vaginal delivery Is this a current diagnosis for this admission?: Yes - Time Time Spent with patient: Less than 15 minutes Anticipated DC Timeframe: within 48 hours - Plan Summary Plan Summary: who is s/p and then uterine inversion iwth hemorrhage r equiring OR for uterine replacement, D&C and Bakri balloon -VSS -TOTAL EBL 3,300 -s/p 4 Units PRBC, 6 pk platelets and 2 units FFP -Doing well presently -Bakri in place. fundus firm. bleeding appropriate -Hgb post transfusion 11.5, repeat CBC Q 6 until stable. WBC on last check 40K? Afebrile on Ancef 2 gms Q 6 hrs. Will monitor leukocytosis. Possible transfusion effect -Continue current care.
[2020-08-12 17:30] LABS: HEMATOCRIT 28.9 % (36.0-47.0); MEAN CORPUSCULAR HEMOGLOBIN 31.4 pg (27.0-33.4); MEAN CORPUSCULAR HGB CONC 34.6 g/dL (32.0-36.0); MEAN CORPUSCULAR VOLUME 91 fl (80-97); PLATELET COUNT 125 10^3/uL (150-450); RED BLOOD COUNT 3.19 10^6/uL (3.72-5.28); RED CELL DISTRIBUTION WIDTH 15.4 % (11.5-14.0); WHITE BLOOD COUNT 26.3 10^3/uL (4.0-10.5)
[2020-08-12] MEDS: FERROUS SULFATE 325 MG TABLET PO SCH (18:46)
[2020-08-12] MEDS: DOCUSATE SODIUM 100 MG CAPSULE PO SCH (18:46)
[2020-08-13] MEDS: ACETAMINOPHEN WITH CODEINE #3 TABLET PO PRN ×3 (01:32→19:36)
[2020-08-13] MEDS: IBUPROFEN 800 MG TABLET PO SCH ×4 (05:22→21:23)
[2020-08-13 06:27] LABS: HEMATOCRIT 26.9 % (36.0-47.0); HEMOGLOBIN 9.4 g/dL (12.0-15.5); MEAN CORPUSCULAR VOLUME 91 fl (80-97); PLATELET COUNT 116 10^3/uL (150-450); RED BLOOD COUNT 2.94 10^6/uL (3.72-5.28); WHITE BLOOD COUNT 18.3 10^3/uL (4.0-10.5)
[2020-08-13] MEDS: CEFAZOLIN 2 GM/D5W RTU 2 GM/50 ML RTUPB IV SCH ×3 (06:29→21:24)
--- NOTE | 2020-08-13 06:44 | PDOC PROGRESS REPORT ---
Subjective Date:: 08/13/20 Subjective:: Doing well today. Bleeding minimal. Voiding via lindsay. Large amount clear yellow urine. Tolerating PO well. No n/v. No fever or chills. Breast feeding without incidence Reason For Visit: Physical Exam - Physical Exam Vital Signs: Temp Pulse Resp BP Pulse Ox 98.2 F 99 16 131/63 H 100 08/12/20 22:00 08/12/20 21:34 08/12/20 21:34 08/12/20 21:34 08/12/20 21:34 Intake & Output 08/11/20 08/12/20 08/13/20 06:59 06:59 06:59 Intake Total 3340 Output Total 1442 Balance 1898 Weight 83.4 kg General appearance: PRESENT: no acute distress, cooperative GI/Abdominal exam: PRESENT: normal bowel sounds, soft Neurological exam: PRESENT: alert, awake, oriented to person, oriented to place, oriented to time Psychiatric exam: PRESENT: appropriate affect, normal mood. ABSENT: homicidal ideation, suicidal ideation Skin exam: PRESENT: dry, intact - large bruise left arm at site of IV in filtration-IV now removed, warm. ABSENT: cyanosis, rash - Gynecological Exam Labia: normal Introitus: normal Perineum: normal - Bakri in place. Uterine fundus firm and 2 below. Small amount of blood on chux pad: 6 cm diameter [place]. There is drainage from the Bakri on to sheets in spot measuring 10-12 cm diameter but no clots just dilute bloody appearing drainage. No trickling from vault or Bakri presently Result Laboratory Results: 08/13/20 06:06 08/12/20 08/12/20 08/12/20 07:08 07:08 09:50 WBC 19.1 H 40.0 H* D RBC 3.35 L 3.68 L Hgb 11.2 L 11.5 L Hct 32.9 L 34.0 L MCV 98 H 92 D MCH 33.3 31.4 MCHC 33.9 34.0 RDW 13.2 15.6 H Plt Count 185 112 L Seg Neutrophils % 83.5 H Not Reportable Blood Type AB POSITIVE Antibody Screen NEGATIVE 08/12/20 08/13/20 17:15 06:06 WBC 26.3 H 18.3 H RBC 3.19 L 2.94 L Hgb 10.0 L 9.4 L Hct 28.9 L 26.9 L MCV 91 91 MCH 31.4 32.0 MCHC 34.6 35.0 RDW 15.4 H 16.0 H Plt Count 125 L 116 L Seg Neutrophils % Blood Type Antibody Screen Assessment & Plan - Diagnosis (1) hemorrhage Is this a current diagnosis for this admission?: Yes (2) Uterine inversion Is this a current diagnosis for this admission?: Yes (3) Vaginal delivery Is this a current diagnosis for this admission?: Yes - Time Time Spent with patient: Less than 15 minutes Anticipated discharge: Home Anticipated DC Timeframe: within 24 hours - Plan Summary Plan Summary: 24 yo s/p with post delivery uterine inversion and resulting hemorrhage/ now s/p replacement and 4 units PRBC, 2 units FFP and on 6 pk platelets. Bakri in place -Doing well today. Pain well managed -Bakri in place, let out 1/2 fluid in balloon at 0630. Will remove remaining in 1/2 hr if bleeding stable and then remove Bakri at that time. -Hgb is 9.4 this am and WBC 18.3 this am. She is on Ancef Q 6 hrs IV for infection prophylaxis -Once Bakri is out, will give Methergine 0.2 mg PO Q 6 hrs x 6 doses or discharge -breast feeding well. -Tolerating PO well. -Continue care
[2020-08-13] MEDS: PRENATAL VITAMIN W DHA CAPSULE PO SCH ×2 (07:52→11:52)
[2020-08-13] MEDS: SENNOSIDES/DOCUSATE 8.6-50 MG 1 EACH TABLET PO SCH ×2 (07:52→11:53)
[2020-08-13] MEDS: DOCUSATE SODIUM 100 MG CAPSULE PO SCH ×3 (07:53→17:59)
[2020-08-13] MEDS: FERROUS SULFATE 325 MG TABLET PO SCH ×3 (07:53→17:59)
[2020-08-13] MEDS: METHYLERGONOVINE MALEATE 0.2 MG TABLET PO SCH ×3 (07:57→17:59)
[2020-08-13] MEDS ORDERED: OXYTOCIN 10 UNIT/ML VIAL ONE (14:58)
[2020-08-13] MEDS ORDERED: MISOPROSTOL 0.2 MG TABLET ONE (14:58)
[2020-08-13 15:29] LABS: PATH REVIEW PATHOLOGIST REVIEWED
[2020-08-14] MEDS: METHYLERGONOVINE MALEATE 0.2 MG TABLET PO SCH ×4 (00:07→21:30)
[2020-08-14] MEDS: IBUPROFEN 800 MG TABLET PO SCH ×3 (05:15→21:47)
[2020-08-14] MEDS: CEFAZOLIN 2 GM/D5W RTU 2 GM/50 ML RTUPB IV SCH (05:16)
--- NOTE | 2020-08-14 09:43 | PDOC PROGRESS REPORT ---
Subjective-OB Progress Note for:: 08/14/20 Subjective: Feeling a little better, c/o of back pain x 2 days, eating, voiding, can only walk around at short periods of time, BF at BS, talking and discussing PPH and to OR for uterine inversion, holding baby, bleeding scan to moderate Physical Exam (OB) Vital Signs: Temp Pulse Resp BP Pulse Ox 97.8 F 80 16 114/71 99 08/14/20 08:04 08/14/20 08:04 08/14/20 08:04 08/14/20 08:04 08/14/20 08:04 Intake & Output 08/13/20 08/14/20 08/15/20 06:59 06:59 06:59 Intake Total 3340 500 Output Total 1442 1600 Balance 1898 -1100 - PIH/Pre-Eclampsia DTR's: 2 + Clonus: Negative Headache: Absent Epigastric Pain: No Visual Changes: No - Maternal Morbidity 59. Maternal Morbidity (serious complications experinced by the mother associated with labor and delivery: Maternal transfusion, Unplanned operating room procedure following delivery - Lochia Lochia Amount: Scant < 10 ml Lochia Color: Rubra/Red - Abdomen Description: Tender, Soft, Round Hernia Present: No Fundal Description: Firm, Midline Fundal Height: u/3 - u/4 Objective-Diagnostic Laboratory: 08/13/20 06:06 08/12/20 08/12/20 07:08 09:50 MCV 92 D Blood Type AB POSITIVE Antibody Screen NEGATIVE Assessment and Plan(PN) - Assessment and Plan (1) Blood transfusion during current hospitalisation Is this a current diagnosis for this admission?: Yes (2) hemorrhage Qualifiers: hemorrhage type: unspecified Qualified Code(s): O72.1 - Other immediate hemorrhage Is this a current diagnosis for this admission?: Yes (3) Uterine inversion Is this a current diagnosis for this admission?: Yes (4) Cannabis abuse Is this a current diagnosis for this admission?: Yes (5) Obstetric labial laceration, delivered, current hospitalization Is this a current diagnosis for this admission?: Yes (6) Vaginal delivery Is this a current diagnosis for this admission?: Yes (7) Chlamydia infection affecting Qualifiers: Trimester: unspecified trimester Qualified Code(s): O98.819 - Other m aternal infectious and parasitic diseases complicating , unspecified trimester; A74.9 - Chlamydial infection, unspecified Is this a current diagnosis for this admission?: Yes (8) SROM (spontaneous rupture of membranes) Is this a current diagnosis for this admission?: Yes - Time Spent with Patient Time with patient: Less than 15 minutes Medications reviewed and adjusted accordingly: Yes - Disposition Anticipated Discharge Disposition: Home, Self Care Anticipated Discharge Timeframe: within 48 hours - both arms bruised from IV's, c/o of back pain since delivery, did not have a epidural, general anesthesia for inversion of uterus, plt today 116, WBC down to 18.3 will keep another day, pt agrees
[2020-08-14] MEDS: SENNOSIDES/DOCUSATE 8.6-50 MG 1 EACH TABLET PO SCH (11:14)
[2020-08-14] MEDS: FERROUS SULFATE 325 MG TABLET PO SCH ×2 (11:14→18:56)
[2020-08-14] MEDS: PRENATAL VITAMIN W DHA CAPSULE PO SCH (11:14)
[2020-08-14] MEDS: DOCUSATE SODIUM 100 MG CAPSULE PO SCH ×2 (11:14→18:56)
[2020-08-15] MEDS: IBUPROFEN 800 MG TABLET PO SCH (05:16)
[2020-08-15 07:56] LABS: HEMATOCRIT 27.4 % (36.0-47.0); HEMOGLOBIN 9.6 g/dL (12.0-15.5); MEAN CORPUSCULAR HEMOGLOBIN 32.2 pg (27.0-33.4); MEAN CORPUSCULAR HGB CONC 35.1 g/dL (32.0-36.0); MEAN CORPUSCULAR VOLUME 92 fl (80-97); PLATELET COUNT 142 10^3/uL (150-450); RED CELL DISTRIBUTION WIDTH 15.5 % (11.5-14.0)
[2020-08-15] MEDS: PRENATAL VITAMIN W DHA CAPSULE PO SCH (09:59)
[2020-08-15] MEDS: SENNOSIDES/DOCUSATE 8.6-50 MG 1 EACH TABLET PO SCH (09:59)
[2020-08-15] MEDS: FERROUS SULFATE 325 MG TABLET PO SCH (09:59)
[2020-08-15] MEDS: DOCUSATE SODIUM 100 MG CAPSULE PO SCH (09:59)
--- NOTE | 2020-08-15 11:12 | PDOC DISCHARGE SUMMARY ---
Impression - Admit/DC Date/PCP Admission Date/Primary Care Provider: 08/12/20 06:15 Discharge Date: 08/15/20 - Discharge Diagnosis (1) Blood transfusion during current hospitalisation Is this a current diagnosis for this admission?: Yes (2) Cannabis abuse Is this a current diagnosis for this admission?: Yes (3) Chlamydia infection affecting Is this a current diagnosis for this admission?: Yes (4) Obstetric labial laceration, delivered, current hospitalization Is this a current diagnosis for this admission?: Yes (5) hemorrhage Is this a current diagnosis for this admission?: Yes (6) SROM (spontaneous rupture of membranes) Is this a current diagnosis for this admission?: Yes (7) Uterine inversion Is this a current diagnosis for this admission?: Yes (8) Vaginal delivery Is this a current diagnosis for this admission?: Yes - Additional Information Resuscitation Status: Full Code Discharge Diet: Regular Discharge Activity: Balance Activity w/Rest, Pelvic Rest Prescriptions: Ibuprofen [Motrin 800 mg Tablet] 800 mg PO Q8HP PRN #60 tablet PRN Reason: Ferrous Sulfate [Feosol 325 mg Tablet] 325 mg PO BID #30 tablet Home Medications: Vit/Dha [ Multi + Dha Capsule] 1 cap PO DAILY #90 capsule 01/05/19 Ferrous Sulfate [Feosol 325 mg Tablet] 325 mg PO BID #30 tablet 08/15/20 Ibuprofen [Motrin 800 mg Tablet] 800 mg PO Q8HP PRN #60 tablet 08/15/20 HPI Gestational Age: 39.6 Reason(s) for Admission: Onset of Labor Procedures: NST Intrapartum Procedure(s): Spontaneous Vaginal Delivery Complication(s): Other Complication(s) Note: Spontaneous uterine inversion with hemorrhage, taken to OR, transfused PRBCs Hospital Course 59. Maternal Morbidity (serious complications experinced by the mother a ssociated with labor and delivery: Maternal transfusion, Unplanned operating room procedure following delivery Results Laboratory Results: WBC 8.0 10^3/uL (4.0-10.5) 08/15/20 07:26 RBC 3.00 10^6/uL (3.72-5.28) L 08/15/20 07:26 Hgb 9.6 g/dL (12.0-15.5) L 08/15/20 07:26 Hct 27.4 % (36.0-47.0) L 08/15/20 07:26 MCV 92 fl (80-97) 08/15/20 07:26 MCH 32.2 pg (27.0-33.4) 08/15/20 07:26 MCHC 35.1 g/dL (32.0-36.0) 08/15/20 07:26 RDW 15.5 % (11.5-14.0) H 08/15/20 07:26 Plt Count 142 10^3/uL (150-450) L 08/15/20 07:26 Lymph % (Auto) Not Reportable 08/12/20 09:50 Cass % (Auto) Not Reportable 08/12/20 09:50 Eos % (Auto) Not Reportable 08/12/20 09:50 Baso % (Auto) Not Reportable 08/12/20 09:50 Absolute Neuts (auto) Not Reportable 08/12/20 09:50 Absolute Lymphs (auto) Not Reportable 08/12/20 09:50 Absolute Monos (auto) Not Reportable 08/12/20 09:50 Absolute Eos (auto) Not Reportable 08/12/20 09:50 Absolute Basos (auto) Not Reportable 08/12/20 09:50 Total Counted 100 08/12/20 09:50 Seg Neutrophils % Not Reportable 08/12/20 09:50 Seg Neuts % (Manual) 95 % (42-78) H 08/12/20 09:50 Lymphocytes % (Manual) 2 % (13-45) L 08/12/20 09:50 Monocytes % (Manual) 3 % (3-13) 08/12/20 09:50 Eosinophils % (Manual) 0 % (0-6) 08/12/20 09:50 Basophils % (Manual) 0 % (0-2) 08/12/20 09:50 Abs Neuts (Manual) 38.0 10^3/uL (1.7-8.2) H 08/12/20 09:50 Abs Lymphs (Manual) 0.8 10^3/uL (0.5-4.7) 08/12/20 09:50 Abs Monocytes (Manual) 1.2 10^3/uL (0.1-1.4) 08/12/20 09:50 Absolute Eos (Manual) 0.0 10^3/uL (0.0-0.6) 08/12/20 09:50 Abs Basophils (Manual) 0.0 10^3/uL (0.0-0.2) 08/12/20 09:50 Toxic Granulation 1+ 08/12/20 09:50 Toxic Vacuolation PRESENT 08/12/20 09:50 Platelet Comment DECREASED 08/12/20 09:50 Anisocytosis SLIGHT 08/12/20 09:50 [place] Cells SLIGHT 08/12/20 09:50 Urine Color YELLOW 08/12/20 01:20 Urine Appearance CLEAR 08/12/20 01:20 Urine pH 7.0 (5.0-9.0) 08/12/20 01:20 Ur Specific [place] 1.019 08/12/20 01:20 Urine Protein 30 mg/dL (NEGATIVE) H 08/12/20 01:20 Urine Glucose (UA) NEGATIVE mg/dL (NEGATIVE) 08/12/20 01:20 Urine Ketones NEGATIVE mg/dL (NEGATIVE) 08/12/20 01:20 Urine Blood NEGATIVE (NEGATIVE) 08/12/20 01:20 Urine Nitrite NEGATIVE (NEGATIVE) 08/12/20 01:20 Urine Bilirubin NEGATIVE (NEGATIVE) 08/12/20 01:20 Urine Urobilinogen NEGATIVE mg/dL (<2.0) 08/12/20 01:20 Ur Leukocyte Esterase NEGATIVE (NEGATIVE) 08/12/20 01:20 Urine Ascorbic Acid NEGATIVE (NEGATIVE) 08/12/20 01:20 Urine Opiates Screen NEGATIVE 08/12/20 01:20 Urine Methadone Screen NEGATIVE 08/12/20 01:20 Ur Barbiturates Screen NEGATIVE 08/12/20 01:20 Ur Phencyclidine Scrn NEGATIVE 08/12/20 01:20 Ur Amphetamines Screen NEGATIVE 08/12/20 01:20 U Benzodiazepines Scrn NEGATIVE 08/12/20 01:20 Urine Cocaine Screen NEGATIVE 08/12/20 01:20 U Marijuana (THC) Screen UNCONFIRMED POSITIVE 08/12/20 01:20 RPR NONREACTIVE (NONREACTIVE) 08/12/20 07:08 Slides for Path Review PATHOLOGIST REVIEWED 08/12/20 09:50 Blood Type AB POSITIVE 08/12/20 07:08 Antibody Screen NEGATIVE 08/12/20 07:08 Crossmatch See Detail 08/12/20 07:08 Mass Transfus Initiated MTP INITIATED 08/12/20 07:20 Mass Transfus Discontin MTP DISCONTINUED 08/12/20 07:20 Plan Plan of Treatment: f/u at [facility] 4 wks, avoid sexual activity until seen by A and cleared Time Spent: Less than 30 Minutes
[2020-08-15 11:58] VITALS: BP 114/71
== END 2020-08-15 13:23 | disposition home or self-care (01) | DRG 768 ==
LOC: LC 01:11 → LR 06:15 → 2S 10:00
PROVIDERS: ADMIT Obstetrics & Gynecology; ATTEND Obstetrics & Gynecology
PROC: 10E0XZZ Delivery of Products of Conception, External Approach (ICD-10-PCS; 2020-08-12)
PROC: 0US97ZZ Reposition Uterus, Via Natural or Artificial Opening (ICD-10-PCS; 2020-08-12)
PROC: 10D17ZZ Extraction of Products of Conception, Retained, Via Natural or Artificial Opening (ICD-10-PCS; 2020-08-12)
PROC: 0UQMXZZ Repair Vulva, External Approach (ICD-10-PCS; 2020-08-12)
PROC: 30233L1 Transfusion of Nonautologous Fresh Plasma into Peripheral Vein, Percutaneous Approach (ICD-10-PCS; 2020-08-12)
PROC: 30233N1 Transfusion of Nonautologous Red Blood Cells into Peripheral Vein, Percutaneous Approach (ICD-10-PCS; 2020-08-12)
PROC: 30233R1 Transfusion of Nonautologous Platelets into Peripheral Vein, Percutaneous Approach (ICD-10-PCS; 2020-08-12)
PROC: 0W3R7ZZ Control Bleeding in Genitourinary Tract, Via Natural or Artificial Opening (ICD-10-PCS; principal; 2020-08-12 07:30)
DX: O71.2 Postpartum inversion of uterus (principal); Z37.0 Single live birth; O99.324 Drug use complicating childbirth; O72.1 Other immediate postpartum hemorrhage; O98.32 Other infections with a predominantly sexual mode of transmission complicating childbirth; F12.10 Cannabis abuse, uncomplicated; O70.0 First degree perineal laceration during delivery; A74.9 Chlamydial infection, unspecified; Z20.822 Contact with and (suspected) exposure to COVID-19; A60.9 Anogenital herpesviral infection, unspecified; Z68.39 Body mass index [BMI] 39.0-39.9, adult; O98.819 Other maternal infectious and parasitic diseases complicating pregnancy, unspecified trimester; Z87.891 Personal history of nicotine dependence
CPT/HCPCS: 36415; 36430; 80307; 81005; 85025; 85027; 86592; 86850; 86900; 86901; 86920; 940; 94760; 99140; J0330; J0610; J0690; J2270; J2300; J2550; J2590; J3105; J3475; J3490; P9016; P9017; P9035